=== PATIENT | female | born 1950 | race Caucasian/White ===

== ENCOUNTER → 2016-06-23 | Outpatient (CLI) | payer OTHER | END | disposition home or self-care (01) | LOC: C.LAB 07:30 | PROVIDERS: ATTEND Family Medicine | DX: Z11.59 Encounter for screening for other viral diseases (principal) ==

== ENCOUNTER → 2016-08-05 | Outpatient (CLI) | payer OTHER | END | disposition home or self-care (01) | LOC: C.PATH 17:07 | PROVIDERS: ATTEND Dermatology | DX: C44.619 Basal cell carcinoma of skin of left upper limb, including shoulder (principal); C44.719 Basal cell carcinoma of skin of left lower limb, including hip ==

== ENCOUNTER → 2016-12-07 | Outpatient (CLI) | payer OTHER ==
--- NOTE | 2016-12-08 08:10 | MAMMOGRAPHY REPORT ---
BILATERAL DIGITAL SCREENING MAMMOGRAM TOMOSYNTHESIS WITH CAD: 12/07/2016 CLINICAL HISTORY: Routine screening. Patient has no complaints. TECHNIQUE: Breast tomosynthesis in addition to standard 2D mammography was performed. Current study was also evaluated with a Computer Aided Detection (CAD) system. COMPARISON: Comparison is made to exams dated: 11/28/2014 mammogram, 12/03/2015 mammogram, 11/22/2013 ma mmogram, 11/21/2012 mammogram, 11/12/2010 mammogram, and 11/06/2009 mammogram - [facility]. BREAST COMPOSITION: There are scattered areas of fibroglandular density in both breasts. FINDINGS: There is a 6 mm focal asymmetry in the upper inner quadrant of the right breast. The size appears unchanged dating back to at least 11/06/2009 and there is increasing coarse calcification, m ost likely representing a degenerating fibroadenoma. No new suspicious mass, architectural distortion or cluster of microcalcifications is seen. IMPRESSION: ACR BI-RADS CATEGORY 2: BENIGN There is no mammographic evidence of malignancy. A 1 year screening mammogram is recommended. The pa tient will receive written notification of the results. Approximately 10% of breast cancers are not detected with mammography. A negative mammographic report should not delay biopsy if a clinically suggestive mass is present. America Landry M.D. ay/:12/07/2016 16:30:00 [employer]: Fela Canales M, [facility] letter sent: Normal 1/2 BI-RADS Code: ACR BI-RADS Category 2: Benign
== END | disposition home or self-care (01) ==
LOC: C.MAMM 07:38
PROVIDERS: ATTEND Family Medicine
DX: Z12.31 Encounter for screening mammogram for malignant neoplasm of breast (principal)

== ENCOUNTER → 2017-03-08 | Outpatient (CLI) | payer OTHER | END | disposition home or self-care (01) | LOC: C.PATHSPEC 17:31 | PROVIDERS: ATTEND Dermatology | DX: C44.91 Basal cell carcinoma of skin, unspecified (principal) ==

== ENCOUNTER 2017-05-16 22:06 | Inpatient (IN) | payer OTHER ==
[~2017-05-16] VITALS: Ht 162.6 cm; Wt 96.8 kg
[2017-05-16] MEDS ORDERED: [UNRECOGNIZED DRUG - OTHER] PO (23:04)
[2017-05-16] MEDS ORDERED: MONT1TAB3 PO (23:05)
[2017-05-16] MEDS ORDERED: COEN30CA8 PO (23:05)
[2017-05-16] MEDS ORDERED: FEXO1TAB49 PO (23:06)
[2017-05-16] MEDS ORDERED: PROB1TAB16 PO (23:07)
[2017-05-16] MEDS ORDERED: IBUP-1050 PO (23:08)
[2017-05-16] MEDS ORDERED: TRIA1SPR4 NAE (23:09)
[2017-05-16] MEDS ORDERED: MELA1TAB5 PO (23:10)
[2017-05-16] MEDS ORDERED: ONDANSETRON INJ 2 MG/ML 2 ML VIAL IV STA (23:20)
[2017-05-16] MEDS ORDERED: HYDROmorphone INJ 2 MG/ML SYR/VIAL IV STA (23:20)
[2017-05-16 23:33] LABS: BASO % 0.1 %; BASO ABS # 0.02 K/uL (0-0.2); EOS % 0.4 %; EOS ABS # 0.06 K/uL (0-0.5); HEMOGLOBIN 14.5 g/dL (12.0-16.0); IG# 0.03 K/uL (0.00-0.02); LYMPH % 9.4 %; LYMPH ABS # 1.31 K/uL (1.2-3.4); MEAN CELL VOLUME 77.3 fL (80-100); MEAN CORPUSCULAR HEMOGLOBIN 26.7 pg (25-34); MEAN CORPUSCULAR HGB CONC 34.5 g/dl (32-36); MEAN PLATELET VOLUME 9.7 fL (7.4-10.4); MONO % 6.3 %; MONO ABS # 0.88 K/uL (0.11-0.59); NEUT % 83.6 %; PLATELET COUNT 344 K/uL (130-400); RED CELL DISTRIBUTION WIDTH CV 16.9 % (11.5-14.5); RED CELL DISTRIBUTION WIDTH SD 47.3 fL (36.4-46.3)
--- NOTE | 2017-05-16 23:42 | EMERGENCY ROOM VISIT NOTE ---
History Report prepared by Saumya: Bonifacio Pedraza Under the Supervision of: Dr. Neena Heredia D.O. First contact with patient: 23:06 Chief Complaint: GI ASSESSMENT Stated Complaint: UPPER RIGHT QUAD PAIN,GI SOUNDS Nursing Triage Summary: Left abd and flank pain. History of Present Illness The patient is a 67 year old female who presents to the Emergency Room with complaints of worsening abdominal pain for the past three days. She currently rates her pain as a 7/10 in severity. The patient notes that the pain is diffuse , and it is radiating into the back. She notes that she ate a spinach salad three days ago, and afterwards she started to have this abdominal pain. The patient states that she was trying to sleep tonight, but the pain got worse, and she came to the ED for evaluation. She denies any history of abdominal surgeries, and she does not have any family history of gall bladder disease. The patient denies any vomiting, diarrhea, leg cramping, and leg swelling. The patient states that she has a history AV node conduction irregularity. She takes Vanna, Flonase, Singulair, 3 ibuprofen, and 6mg of melatonin every day. She ate half of a banana, a rice cake, yogurt, and a probiotic today. She denies any alcohol use. Source of History: patient Onset: three days ago Position: abdomen Symptom Intensity: 7/10 Timing: worsening Associated Symptoms: + back pain, No vomiting, No diarrhea Review of Systems See HPI for pertinent positives & negatives. A total of 10 systems reviewed and were otherwise negative. Past Medical & Surgical Medical Problems: (1) Heart disease (2) History of skin cancer (3) HTN (hypertension) Family History Cancer Diabetes mellitus Heart disease Hypertension Social History Smoking Status: Former Smoker Marital Status: Housing Status: lives with family Occupation Status: employed Current/Historical Medications Scheduled Coenzyme Q10 (Ubidecarenone) (Coq-10), Unknown Dose PO DAILY Fexofenadine Hcl (Vanna Allergy), 1 TAB PO DAILY Ibuprofen (Advil), 300 MG PO HS Melatonin (Kp Melatonin), 6 MG PO HS Montelukast Sodium (Singulair), 10 MG PO DAILY Probiotic Product (Probiotic), 1 TAB PO DAILY Triamcinolone Acetonide (Nasal (Nasacort Allergy 24Hr), 1 SPRAY SAM DAILY [red ankita oil], 1 DOSE PO DAILY Allergies Coded Allergies: Dust (Verified Allergy, Unknown, runny nose, 05/16/17) Physical Exam Vital Signs Date Time Temp Pulse Resp B/P (MAP) Pulse Ox O2 Delivery O2 Flow Rate FiO2 05/17/17 05:21 96 Nasal Cannula 2.0 05/17/17 05:21 86 Room Air 05/17/17 05:14 70 20 90/60 94 Room Air 05/17/17 03:43 81 20 126/67 93 Room Air 05/17/17 02:28 74 05/17/17 02:21 76 20 112/67 100 Nasal Cannula 2.0 05/17/17 00:46 74 16 110/68 95 Nasal Cannula 2.0 05/17/17 00:18 95 Nasal Cannula 2.0 05/17/17 00:16 66 15 110/68 80 Room Air 05/16/17 22:48 85 05/16/17 22:12 36.7 89 24 131/77 99 Room Air Physical Exam General: Appears unable to sit still secondary to pain. HEENT: Head - normocephalic and atraumatic Pupils are equal, round, and reactive to light. Extraocular eye muscles are intact, and sclera are anicteric. Nose - moist nasal mucosa without discharge. Mouth - moist buccal mucosa. Oropharynx is nonerythematous and there is no tonsillar exudate or edema noted. Neck: Supple; no JVD, nuchal rigidity, cervical lymphadenopathy. Heart: Regular rate and rhythm. There is a normal S1 and S2 with no murmurs, clicks, or gallops appreciated. Lungs: Clear to auscultation bilaterally with no wheezes, rales, or rhonchi. Abdomen: Pain with palpation of the epigastrium and right upper quadrant. Soft, nondistended, with good bowel sounds. There are no palpable pulsatile masses or hepatosplenomegaly. There is no guarding, rigidity, or rebound noted. Extremities: No evidence of cyanosis, clubbing, or edema. There are easily palpable peripheral pulses. Skin: warm and dry with good turgor and no rashes. Medical Decision & Procedures ER Provider Diagnostic Interpretation: Radiology results as stated below per my review and the radiologist's interpretation: US RUQ: Prior 08/06/2005. Normal gallbladder. Negative sonographic Mendoza sign. No biliary dilation. Bilobed cystic liver lesion or 2 adjacent septated liver cysts measuring approximately 5 and 6 cm. May be cysts. New since the prior. Consider follow-up/further workup. 2.7 cm hypoechoic lesion in the right hepatic lobe distorts the anterior liver contour. Not adequately characterized and not seen on the prior. Consider follow-up/further workup with liver protocol, multiphasic CT or MRI to characterize lesion. Pancreas partially visualized. No obvious abnormality in the visualized portion CT ABDOMEN & PELVIS With Contrast: The pancreas is enlarged and edematous with peripancreatic fat stranding, consistent with acute pancreatitis. There are no cystic or necrotic peripancreatic collections. No evidence of pancreatic ductal dilatation or pancreatic parenchymal necrosis. There are multiple hepatic cysts, the largest in the left hepatic lobe with a pair of adjacent cysts measuring 4.7 cm and 6.3 cm. There is mild gallbladder distention. Common bile duct appears normal in caliber. Spleen, adrenal glands, and pancreas are unremarkable. No evidence of bowel obstruction. Visualized appendix is normal. Reactive inflammatory changes in the duodenum. Urinary bladder and uterus are unremarkable. No acute osseous findings. Radiologist: Patricia Silverman M.D. Laboratory Results 05/16/17 22:45 Red Blood Count 5.43, Mean Corpuscular Volume 77.3, Mean Corpuscular Hemoglobin 26.7, Mean Corpuscular Hemoglobin Concent 34.5, Mean Platelet Volume 9.7, Neutrophils (%) (Auto) 83.6, Lymphocytes (%) (Auto) 9.4, Monocytes (%) (Auto) 6.3, Eosinophils (%) (Auto) 0.4, Basophils (%) (Auto) 0.1, Neutrophils # (Auto) 11.70, Lymphocytes # (Auto) 1.31, Monocytes # (Auto) 0.88, Eosinophils # (Auto) 0.06, Basophils # (Auto) 0.02 05/16/17 22:45 Test 05/16/17 22:45 White Blood Count 14.00 K/uL (4.8-10.8) Red Blood Count 5.43 M/uL (4.2-5.4) Hemoglobin 14.5 g/dL (12.0-16.0) Hematocrit 42.0 % (37-47) Mean Corpuscular Volume 77.3 fL (80-100) Mean Corpuscular Hemoglobin 26.7 pg (25-34) Mean Corpuscular Hemoglobin Concent 34.5 g/dl (32-36) Platelet Count 344 K/uL (130-400) Mean Platelet Volume 9.7 fL (7.4-10.4) Neutrophils (%) (Auto) 83.6 % Lymphocytes (%) (Auto) 9.4 % Monocytes (%) (Auto) 6.3 % Eosinophils (%) (Auto) 0.4 % Basophils (%) (Auto) 0.1 % Neutrophils # (Auto) 11.70 K/uL (1.4-6.5) Lymphocytes # (Auto) 1.31 K/uL (1.2-3.4) Monocytes # (Auto) 0.88 K/uL (0.11-0.59) Eosinophils # (Auto) 0.06 K/uL (0-0.5) Basophils # (Auto) 0.02 K/uL (0-0.2) RDW Standard Deviation 47.3 fL (36.4-46.3) RDW Coefficient of Variation 16.9 % (11.5-14.5) Immature Granulocyte % (Auto) 0.2 % Immature Granulocyte # (Auto) 0.03 K/uL (0.00-0.02) Urine Color YELLOW Urine Appearance CLEAR (CLEAR) Urine pH 8.0 (4.5-7.5) Urine Specific [place] 1.022 (1.000-1.030) Urine Protein NEG (NEG) Urine Glucose (UA) NEG (NEG) Urine Ketones 1+ (NEG) Urine Occult Blood NEG (NEG) Urine Nitrite NEG (NEG) Urine Bilirubin NEG (NEG) Urine Urobilinogen NEG (NEG) Urine Leukocyte Esterase NEG (NEG) Anion Gap 10.0 mmol/L (3-11) Est Creatinine Clear Calc Drug Dose 71.0 ml/min Estimated GFR () 83.3 Estimated GFR (Non- 71.9 BUN/Creatinine Ratio 11.6 (10-20) Calcium Level 8.7 mg/dl (8.5-10.1) Total Bilirubin 0.4 mg/dl (0.2-1) Direct Bilirubin < 0.1 mg/dl (0-0.2) Aspartate Amino Transf (AST/SGOT) 14 U/L (15-37) Alanine Aminotransferase (ALT/SGPT) 18 U/L (12-78) Alkaline Phosphatase 80 U/L (45-117) Troponin I < 0.015 ng/ml (0-0.045) Total Protein 7.7 gm/dl (6.4-8.2) Albumin 3.6 gm/dl (3.4-5.0) Lipase 751 U/L (73-393) Laboratory results per my review. Medications Administered Medications (Trade) Dose Ordered Sig/Joselyn Route Start Time Stop Time Status Last Admin Dose Admin Hydromorphone HCl (Dilaudid Inj) 2 mg NOW STAT IV 05/16/17 23:20 05/16/17 23:21 DC 05/16/17 23:30 2 MG Ondansetron HCl (Zofran Inj) 4 mg NOW STAT IV 05/16/17 23:20 05/16/17 23:21 DC 05/16/17 23:30 4 MG Ondansetron HCl (Zofran Inj) 4 mg NOW STAT IV 05/17/17 00:36 05/17/17 00:37 DC 05/17/17 00:50 4 MG Sodium Chloride 500 ml @ 999 mls/hr Q31M STAT IV 05/17/17 00:36 05/17/17 01:06 DC 05/17/17 00:50 999 MLS/HR Hydromorphone HCl (Dilaudid Inj) 1 mg NOW STAT IV 05/17/17 04:43 05/17/17 04:44 DC 05/17/17 04:53 1 MG Sodium Chloride 1,000 ml @ 125 mls/hr Q8H STAT IV 05/17/17 04:44 05/17/17 12:43 05/17/17 04:52 125 MLS/HR Ondansetron HCl (Zofran Inj) 2 mg NOW STAT IV 05/17/17 04:45 05/17/17 04:46 DC 05/17/17 04:52 2 MG Procedure Ordered: Zofran IV 3, Dilaudid IV 2, Sodium Chloride IV bolus, normal saline drip ECG Per My Interpretation Indication: abdominal pain Rate (beats per minute): 70 Rhythm: normal sinus Findings: LBBB, no acute ischemic change, no ectopy Comparison ECG Date: no prior available ED Course 2314: Past medical records reviewed. The patient was evaluated in room C1. A complete history and physical exam was performed. An IV lock was initiated and labs were drawn as above. 2320: Zofran 4mg IV, Dilaudid 2mg IV 0019: I reevaluated the patient, and I told her that she is going over to ultrasound. 0035: The patient was vomiting. A 12-lead EKG was obtained as described above 0036: Sodium Chloride 500 ml @ 999 mls/hr IV, Zofran 4mg IV 0235: I reevaluated the patient, and she was resting. I reviewed the results of the ultrasound with the patient and her . The patient will go for CT scan of the abdomen/pelvis. 0443: I reassessed the patient, and she was having more pain. I ordered Dilaudid 1mg IV 0444: Sodium Chloride 1000 ml @ 125 mls/hr IV. 0445: Discussed the patient's case with Dr. Damion Markham. The patient will be evaluated for further management. I ordered Zofran 2mg IV 0447: The patient notes that she has a history of a left bundle branch block. Medical Decision The patient is a 67 year old female who presents to the ED with abdominal pain. Differential diagnosis includes Cholecystitis, pancreatitis, ulcerative disease , gastritis, and small bowel obstruction. Lab results: UA had 1+ ketones, lipase is 751, glucose 118, LFT and renal function are normal, white count is 15, stable H&H This is a 67-year-old female patient presents to the emergency department with severe epigastric abdominal pain. The patient has an elevated lipase but no obvious signs of acute cholecystitis on ultrasound. CT scan of the abdomen/ pelvis shows evidence of acute pancreatitis. She has no history of alcohol abuse. The patient will be kept n.p.o. She was placed on normal saline drip. She required decisional doses of IV Dilaudid for pain management. I discussed the case with Lia Markham and they will evaluate for further management. Medication Reconcilliation Current Medication List: was personally reviewed by me Blood Pressure Screening Patient's blood pressure: Normal blood pressure Consults Time Called: [phone] Consulting Physician: Dr. Damion Markham Returned Call: [phone] Discussed the patient's case with Dr. Damion Markham. The patient will be evaluated for further management. Impression Primary Impression: Pancreatitis Scribe Attestation The scribe's documentation has been prepared under my direction and personally reviewed by me in its entirety. I confirm that the note above accurately reflects all work, treatment, procedures, and medical decision making performed by me. Departure Information Dispostion Being Evaluated By Hospitalist Referrals Nicole Blackwell D.O. (PCP) Patient Instructions My [facility] Problem Qualifiers Primary Impression: Pancreatitis Chronicity: acute Pancreatitis type: unspecified pancreatitis type Acute pancreatitis complication: unspecified Qualified Codes: K85.90 - Acute pancreatitis without necrosis or infection, unspecified
[2017-05-16 23:56] LABS: ALBUMIN 3.6 gm/dl (3.4-5.0); ALT/SGPT 18 U/L (12-78); AST/SGOT 14 U/L (15-37); BLOOD UREA NITROGEN 10 mg/dl (7-18); CALCIUM 8.7 mg/dl (8.5-10.1); CARBON DIOXIDE 25 mmol/L (21-32); CREATININE 0.85 mg/dl (0.60-1.20); GLUCOSE 118 mg/dl (70-99); LIPASE 751 U/L (73-393); POTASSIUM 3.6 mmol/L (3.5-5.1); SODIUM 136 mmol/L (136-145)
[2017-05-17 00:01] LABS: ALKALINE PHOSPHATASE 80 U/L (45-117); TOTAL PROTEIN 7.7 gm/dl (6.4-8.2)
[2017-05-17] MEDS ORDERED: SODIUM CHLORIDE 0.9% 500ML 500 ML IV STA (00:36)
[2017-05-17] MEDS ORDERED: ONDANSETRON INJ 2 MG/ML 2 ML VIAL IV STA ×2 (00:36→04:45)
[2017-05-17] MEDS ORDERED: OPTIRAY 320 IV PRN (03:30)
[2017-05-17] MEDS ORDERED: HYDROmorphone INJ 1 MG/ML SYR IV STA (04:43)
[2017-05-17] MEDS ORDERED: SODIUM CHLORIDE 0.9% 1000ML 1,000 ML IV STA (04:44)
[2017-05-17] MEDS ORDERED: ONDANSETRON INJ 2 MG/ML 2 ML VIAL ONE (04:47)
[2017-05-17] MEDS ORDERED: POLYETHYLENE (MIRALAX) 17 GM PACK PO PRN (06:30)
[2017-05-17] MEDS ORDERED: ONDANSETRON INJ 2 MG/ML 2 ML VIAL IV PRN (06:30)
--- NOTE | 2017-05-17 06:35 | History and Physical ---
History & Physical Date & Time of Service: May 17, 2017 at 06:34 Chief Complaint: Upper Right Quad Pain,Gi Sounds Primary Care Physician: Nicole Blackwell D.O. History of Present Illness Source: patient, family, clinic records Patient is a 67 yo female who presents to the hospital for complaints of intensifying abdominal pain that first began about 3 days ago. The patient states she noted RUQ constant pain on Tuesday, with radiation to the left side. She states that she has had normal BMs, and attributed the symptoms to possibly something she ate as she said certain foods have been eliminated from her diet due to intolerance (i.e. dairy, whole wheat, certain grains). The pain seemed to get worse each day, until earlier today it became unbearable and starting radiating straight into her back. She denies any recent medication changes, denies any alcohol use, and denies any symptoms of melena, hematochezia , nausea, or vomiting, but only experienced N/V since been in the ER. No prior history of such symptoms. She has never undergone a screening colonoscopy due to a traumatic experience with a sigmoidoscopy. Past Medical/Surgical History Medical Problems: (1) RBBB (2) History of skin cancer (3) Allergic rhinitis Family History Cancer Diabetes mellitus Heart disease Hypertension Social History Smoking Status: Former Smoker Alcohol Use: occasionally (rarely) Drug Use: none Marital Status: Housing status: lives with family Occupational Status: employed (RN at [employer]) Multi-Drug Resistant Organisms History of MDRO: No Allergies Coded Allergies: Dust (Verified Allergy, Unknown, runny nose, 05/16/17) Home Medications Scheduled Coenzyme Q10 (Ubidecarenone) (Coq-10), Unknown Dose PO DAILY Fexofenadine Hcl (Minesh Allergy), 1 TAB PO DAILY Ibuprofen (Advil), 300 MG PO HS Melatonin (Kp Melatonin), 6 MG PO HS Montelukast Sodium (Singulair), 10 MG PO DAILY Probiotic Product (Probiotic), 1 TAB PO DAILY Triamcinolone Acetonide (Nasal (Nasacort Allergy 24Hr), 1 SPRAY SAM DAILY [red ankita oil], 1 DOSE PO DAILY Review of Systems Constitutional: No fever, No chills, No sweats Eyes: No worsening of vision, No eye pain, No diplopia ENT: No nasal symptoms, No sore throat, No trouble swallowing Respiratory: No cough, No wheezing, No shortness of breath Cardiovascular: No chest pain, No edema, No palpitations Abdomen: + pain, No nausea, No vomiting, No diarrhea, No constipation, No GI bleeding Musculoskeletal: No joint pain, No muscle pain, No swelling Genitourinary - Female: No dysuria, No urinary frequency, No urinary urgency, No urinary incontinence Neurologic: No memory loss, No paralysis, No numbness/tingling, No vertigo Psychiatric: No depression symptoms, No anxiety, No insomnia Endocrine: No fatigue, No excessive thirst, No excessive urination Hematologic / Lymphatic: No abnormal bleeding/bruising, No clotting problems, No swollen lymph nodes Integumentary: No rash, No itch, No new/changing skin lesions Physical Exam Vital Signs Date Time Temp Pulse Resp B/P (MAP) Pulse Ox O2 Delivery O2 Flow Rate FiO2 05/17/17 06:04 66 18 123/51 96 Nasal Cannula 2.0 05/17/17 05:21 96 Nasal Cannula 2.0 05/17/17 05:21 86 Room Air 05/17/17 05:14 70 20 90/60 94 Room Air 05/17/17 03:43 81 20 126/67 93 Room Air 05/17/17 02:28 74 05/17/17 02:21 76 20 112/67 100 Nasal Cannula 2.0 05/17/17 00:46 74 16 110/68 95 Nasal Cannula 2.0 05/17/17 00:18 95 Nasal Cannula 2.0 05/17/17 00:16 66 15 110/68 80 Room Air 05/16/17 22:48 85 05/16/17 22:12 36.7 89 24 131/77 99 Room Air General Appearance: WD/WN, no apparent distress Head: normocephalic, atraumatic Eyes: PERRL, EOMI, sclerae normal (conjunctivae clear) ENT: hearing grossly normal Neck: supple, no JVD, no carotid bruits, trachea midline Respiratory/Chest: chest non-tender, lungs clear, normal breath sounds, no respiratory distress, no accessory muscle use Cardiovascular: regular rate, rhythm, no edema, no gallop, no JVD, no murmur Abdomen/GI: normal bowel sounds, soft, no organomegaly, + tenderness, + distended Back: normal inspection Extremities/Musculoskelatal: no calf tenderness, normal capillary refill, no pedal edema, non-tender Neurologic/Psych: no motor/sensory deficits, alert, normal mood/affect, oriented x 3 Skin: normal color, warm/dry, no rash Diagnostics Laboratory Results Results Past 24 Hours Test 05/16/17 22:45 05/17/17 06:30 05/17/17 06:33 Range/Units White Blood Count 14.00 4.8-10.8 K/uL Red Blood Count 5.43 4.2-5.4 M/uL Hemoglobin 14.5 12.0-16.0 g/dL Hematocrit 42.0 37-47 % Mean Corpuscular Volume 77.3 80-100 fL Mean Corpuscular Hemoglobin 26.7 25-34 pg Mean Corpuscular Hemoglobin Concent 34.5 32-36 g/dl Platelet Count 344 130-400 K/uL Mean Platelet Volume 9.7 7.4-10.4 fL Neutrophils (%) (Auto) 83.6 % Lymphocytes (%) (Auto) 9.4 % Monocytes (%) (Auto) 6.3 % Eosinophils (%) (Auto) 0.4 % Basophils (%) (Auto) 0.1 % Neutrophils # (Auto) 11.70 1.4-6.5 K/uL Lymphocytes # (Auto) 1.31 1.2-3.4 K/uL Monocytes # (Auto) 0.88 0.11-0.59 K/uL Eosinophils # (Auto) 0.06 0-0.5 K/uL Basophils # (Auto) 0.02 0-0.2 K/uL RDW Standard Deviation 47.3 36.4-46.3 fL RDW Coefficient of Variation 16.9 11.5-14.5 % Immature Granulocyte % (Auto) 0.2 % Immature Granulocyte # (Auto) 0.03 0.00-0.02 K/uL Urine Color YELLOW Urine Appearance CLEAR CLEAR Urine pH 8.0 4.5-7.5 Urine Specific [place] 1.022 1.000-1.030 Urine Protein NEG NEG Urine Glucose (UA) NEG NEG Urine Ketones 1+ NEG Urine Occult Blood NEG NEG Urine Nitrite NEG NEG Urine Bilirubin NEG NEG Urine Urobilinogen NEG NEG Urine Leukocyte Esterase NEG NEG Sodium Level 136 136-145 mmol/L Potassium Level 3.6 3.5-5.1 mmol/L Chloride Level 101 98-107 mmol/L Carbon Dioxide Level 25 21-32 mmol/L Anion Gap 10.0 3-11 mmol/L Blood Urea Nitrogen 10 7-18 mg/dl Creatinine 0.85 0.60-1.20 mg/dl Est Creatinine Clear Calc Drug Dose 71.0 ml/min Estimated GFR () 83.3 Estimated GFR (Non- 71.9 BUN/Creatinine Ratio 11.6 10-20 Random Glucose 118 70-99 mg/dl Calcium Level 8.7 8.5-10.1 mg/dl Total Bilirubin 0.4 0.2-1 mg/dl Direct Bilirubin < 0.1 0-0.2 mg/dl Aspartate Amino Transf (AST/SGOT) 14 15-37 U/L Alanine Aminotransferase (ALT/SGPT) 18 12-78 U/L Alkaline Phosphatase 80 45-117 U/L Troponin I < 0.015 0-0.045 ng/ml Total Protein 7.7 6.4-8.2 gm/dl Albumin 3.6 3.4-5.0 gm/dl Lipase 751 73-393 U/L Impression Assessment and Plan ACUTE PANCREATITIS: -US gallbladder negative for cholelithiasis or biliary ductal dilatation -CT abd/pelvis: subtle peripancreatic fat stranding, no cyst, abscess or necrosis -NPO -pain control PRN -IV fluids -check lipid panel for triglycerides -GI consult ALLERGIC RHINITIS: -continue minesh, singulair, and nasal steroid Level of Care Telemetry Resuscitation Status FULL RESUSCITATION VTE Prophylaxis VTE Risk Assessment Done? Y/N: Yes Risk Level: Moderate Given or contraindicated: SCD's
--- NOTE | 2017-05-17 06:40 | DIAGNOSTIC IMAGING REPORT ---
CT ABD/PELVIS IV CONTRAST ONLY CLINICAL HISTORY: Right upper quadrant abdominal pain ABNORMAL ULTRASOUND. HEPATIC MASS. COMPARISON STUDY: Biliary ultrasound dated 05/17/2017 TECHNIQUE: Following the IV administration of 118 mL of Optiray-320, CT scan of the abdomen and pelvis was performed from the lung bases to the proximal femurs. Images are reviewed in the axial, sagittal, and coronal planes. IV contrast was administered without complication. A dose lowering technique was utilized adhering to the principles of ALARA. CT DOSE: 1045.04 mGy.cm FINDINGS: Lower chest: There are dependent atelectatic changes present. Liver: There are multiple hepatic cysts, the largest of which are located in the lateral segment the left lobe measuring 6.7 cm and 5.1 cm. The cyst contains small septations. There is no ductal dilatation. The portal vein is patent. Gallbladder: Unremarkable. Spleen: Normal in size and attenuation. Pancreas: There is subtle peripancreatic edema. Correlation with appropriate biochemical markers is recommended to confirm or exclude pancreatitis Adrenal glands: Unremarkable. Kidneys: There is symmetric renal cortical enhancement. The kidneys are normal in size without hydronephrosis. Bowel: There are no transition zones indicate bowel obstruction. The appendix appears normal. There is no acute diverticulitis. Peritoneum: There is no intraperitoneal free air or abdominal ascites. Vasculature: The abdominal aorta is normal in course and caliber. Adenopathy: None. Pelvic viscera: The bladder, and pelvic viscera are unremarkable. Skeletal structures: No destructive osseous lesions are seen. IMPRESSION: 1. No evidence of bowel obstruction. No evidence of free air 2. Mild pancreatic edema with subtle peripancreatic fat stranding. The findings are viewed as suspicious for acute pancreatitis and clinical correlation is advocated 3. Multiple hepatic cysts Electronically signed by: Matthew Madera M.D. 05/17/2017 6:39 AM Dictated Date/Time: 05/17/2017 6:35 AM
[2017-05-17] MEDS ORDERED: MoRPHine SULFATE 4 MG/ML 1 ML CARP\\VIAL IV PRN ×2 (06:45→17:00)
[2017-05-17] MEDS ORDERED: SODIUM CHLORIDE 0.9% 1000ML 1,000 ML IV SCH (06:45)
--- NOTE | 2017-05-17 07:17 | DIAGNOSTIC IMAGING REPORT ---
GALLBLADDER-ABD LIMITED CLINICAL HISTORY: 67 years-old Female presenting with eval for choley/pancreatitis, left upper quadrant pain, nausea. TECHNIQUE: Real-time grayscale and limited color Doppler ultrasound imaging of the abdomen limited to the right upper quadrant was performed. COMPARISON: CT performed subsequently the same day as well as prior ultrasound from 07/27/2005. FINDINGS: Pancreas: Visualized portions of the pancreatic head and body normal though trace peripancreatic fluid may be present along the ventral aspect of the pancreas. Liver: The liver contains multiple well-defined lobular lesions consistent with hepatic cysts. Some of these demonstrate few thin septations. Additionally a hypoechoic region in the anterior right hepatic lobe slightly distorts the overlying contour with a convex margin. This appears avascular and measures 2.7 x 1.7 x 2.2 cm. When correlating with subsequently performed CT, this is again consistent with hepatic cyst. The liver measures 12.9 cm in maximal sagittal dimension. Main portal vein patent with normal directional flow. Biliary: No intrahepatic biliary ductal dilatation. Common bile duct measures up to 5 mm in diameter. Gallbladder: No evidence of gallstones, gallbladder wall thickening, gallbladder distention, or pericholecystic fluid or inflammatory change. Sonographic Mendoza's sign negative. Right kidney: Normal in appearance. No hydronephrosis. Ascites: None. IMPRESSION: 1. No cholelithiasis or biliary ductal dilatation. No evidence of or cholecystitis. 2. Trace peripancreatic fluid within sonographically normal-appearing pancreas. This could suggest interstitial edematous pancreatitis. Please correlate with lipase. 3. Multiple hepatic cysts. These are better characterized on subsequently performed CT. Electronically signed by: Rashaad Garza M.D. 05/17/2017 7:16 AM Dictated Date/Time: 05/17/2017 6:56 AM
[2017-05-17 07:24] LABS: HEMATOCRIT 37.4 % (37-47); HEMOGLOBIN 12.4 g/dL (12.0-16.0); MEAN CELL VOLUME 79.1 fL (80-100); MEAN CORPUSCULAR HEMOGLOBIN 26.2 pg (25-34); MEAN CORPUSCULAR HGB CONC 33.2 g/dl (32-36); MEAN PLATELET VOLUME 9.5 fL (7.4-10.4); PLATELET COUNT 294 K/uL (130-400); RED CELL DISTRIBUTION WIDTH CV 16.7 % (11.5-14.5); RED CELL DISTRIBUTION WIDTH SD 48.4 fL (36.4-46.3); WHITE BLOOD COUNT 14.93 K/uL (4.8-10.8)
[2017-05-17 07:47] LABS: ALBUMIN 2.9 gm/dl (3.4-5.0); CALCIUM 7.7 mg/dl (8.5-10.1); CREATININE 0.69 mg/dl (0.60-1.20); POTASSIUM 4.5 mmol/L (3.5-5.1)
[2017-05-17 07:53] LABS: TOTAL PROTEIN 6.4 gm/dl (6.4-8.2)
[2017-05-17] MEDS ORDERED: MONTELUKAST SOD 10 MG TAB PO SCH (08:00)
[2017-05-17] MEDS ORDERED: TRIAMCINOLONE ACET NASAL SPRAY 10.8ML BTL NAE SCH (08:00)
[2017-05-17] MEDS ORDERED: FEXOFENADINE HCL 180 MG TAB PO SCH (08:00)
[2017-05-17 08:40] LABS: INR 1.1 (0.9-1.1); PTT PATIENT 30.1 SECONDS (21.0-31.0)
[2017-05-17] MEDS: ENOXAPARIN 40 MG/0.4 ML SYR SQ SCH (09:30)
[2017-05-17 09:33] VITALS: BP 114/75; PULSE 71; TEMP 36.4; Ht 162.6 cm; Wt 96.8 kg
[2017-05-17] MEDS ORDERED: NURSING DECISION MEDICATION ORDER SCH (10:00)
--- NOTE | 2017-05-17 12:10 | Gastrointestinal Consultation ---
Gastrointestinal Consultation Date of Consultation: May 17, 2017 Attending Physician: Miky Consulting Physician: Suzanne Reason for Consultation: acute pancreatitis History of Present Illness Patient is a 67 year old female w/ history of RBBB who presented to the ED for abdominal pain x 3 days. Gi was asked to evaluate the Pt for CT evidence of acute pancreatitis. Pt was seen and evaluated, chart reviewed. Pt notes she had acute onset upper abdominal pain about three days ago. This was located in RUQ with radiation to her back. there was associated nausea, no vomiting. this was worse after certain foods. The next day, she noted the pain was more epigastric in location w/ radiaiton to her back/ It was more severe and persisted and sought ED evaluation. There was no change in her bowel habits. No diarrhea, constipation, black/bloody stools. She tried to take a probiotic, did not relieve her symptoms. She had one bout of emesis after pain medication, this was not black nor bloody. She had chills this AM. Now, no fever, chills. VSS, leukocytosis at 15, HGB 12, HCT 37 w/ plates 300's. BUN 9, cork slabs sawyer 0.6 Her liver enzymes are non elevated w/ lipase 800 New medications: none ETOH: rare, less than once a year none recently Supplements: none NSAIDs: 800 daily HS History of GI malignancy: maternal grandfather w/ colon CA CT ABD/Pelvis 05/17/17: No evidence of bowel obstruction. No evidence of free air Mild pancreatic edema with subtle peripancreatic fat stranding. The findings are viewed as suspicious for acute pancreatitis and clinical correlation isadvocatedMultiple hepatic cysts RUQ US 05/17/17: No cholelithiasis or biliary ductal dilatation. No evidence of orcholecystitis. Trace peripancreatic fluid within sonographically normal- appearing pancreas.This could suggest interstitial edematous pancreatitis. Please correlate withlipase. Multiple hepatic cysts. These are better characterized on subsequently performed CT. EGD: none Colonoscopy: none, pt currently not interested in screening, suggested to call to arrange if she were to change her mind Flex sigmoidoscopy: years ago in OP setting, no records available Past Medical/Surgical History Medical Problems: (1) Pancreatitis Status: Acute Past Medical History: RBBB History of skin cancer Allergic rhinitis Past Surgical History: flex sig Family History Cancer Diabetes mellitus Heart disease Hypertension Social History Smoking Status: Never Smoker Drug Use: none Marital Status: Housing Status: lives with family Occupation Status: employed (RN at [employer]) Allergies Coded Allergies: Dust (Verified Allergy, Unknown, runny nose, 05/16/17) Current Medications Home Meds and Scripts Medications Dose Route/Sig Max Daily Dose Days Date Category Kp Melatonin (Melatonin) 3 Mg Tab 6 Mg PO HS 30 05/16/17 Reported Nasacort Allergy 24Hr (Triamcinolone Acetonide (Nasal) 55 Mcg/Act Spr 1 [place] SAM DAILY 05/16/17 Reported Advil (Ibuprofen) 200 Mg Tab 300 Mg PO HS 05/16/17 Reported Probiotic (Probiotic Product) 1 Tab Tab 1 Tab PO DAILY 05/16/17 Reported Vanna Allergy (Fexofenadine Hcl) 180 Mg Tab 1 Tab PO DAILY 14 05/16/17 Reported Singulair (Montelukast Sodium) 10 Mg Tab 10 Mg PO DAILY 05/16/17 Reported Coq-10 (Coenzyme Q10 (Ubidecarenone)) Unknown Strength Cap Unknown Dose PO DAILY 05/16/17 Reported [red ankita oil] 1 Dose PO DAILY 05/16/17 Reported Review of Systems Constitutional: + chills, No fever, No weight loss, No weakness Respiratory: No cough, No sputum, No shortness of breath, No dyspnea on exertion Cardiac: No chest pain, No edema Abdomen: + pain, + nausea, + vomiting, No diarrhea, No constipation, No GI bleeding, No dysphagia, No odynophagia, No acolic stools, No jaundice, No dark urine Female : No dysuria, No urinary frequency, No hematuria, No incontinence Endo: No fatigue, No excessive thirst, No excessive urination Skin: No rash, No itch, No color change, No bleeding, No jaundice Physical Exam Date Time Temp Pulse Resp B/P (MAP) Pulse Ox O2 Delivery O2 Flow Rate FiO2 05/17/17 09:33 36.4 71 16 114/75 Room Air 05/17/17 07:24 70 17 128/89 98 05/17/17 06:04 66 18 123/51 96 Nasal Cannula 2.0 05/17/17 05:21 96 Nasal Cannula 2.0 05/17/17 05:21 86 Room Air 05/17/17 05:14 70 20 90/60 94 Room Air 05/17/17 03:43 81 20 126/67 93 Room Air 05/17/17 02:28 74 05/17/17 02:21 76 20 112/67 100 Nasal Cannula 2.0 05/17/17 00:46 74 16 110/68 95 Nasal Cannula 2.0 05/17/17 00:18 95 Nasal Cannula 2.0 05/17/17 00:16 66 15 110/68 80 Room Air 05/16/17 22:48 85 05/16/17 22:12 36.7 89 24 131/77 99 Room Air General Appearance: no apparent distress Eyes: PERRL Neck: supple, thyroid normal, no JVD, trachea midline Respiratory/Chest: chest non-tender, lungs clear, normal breath sounds, no respiratory distress, no accessory muscle use Cardiovascular: regular rate, rhythm, no edema, no gallop, no JVD, no murmur Abdomen: normal bowel sounds, soft, no organomegaly, no pulsatile mass, + tenderness (epigastric w/ palpation) Extremities: non-tender, no pedal edema, no calf tenderness Neurologic/Psych: alert, normal mood/affect, oriented x 3 Skin: normal color, no jaundice, warm/dry, no rash Laboratory Results Last 24 Hours Test 05/16/17 22:45 05/17/17 07:10 05/17/17 08:17 White Blood Count 14.00 K/uL 14.93 K/uL Red Blood Count 5.43 M/uL 4.73 M/uL Hemoglobin 14.5 g/dL 12.4 g/dL Hematocrit 42.0 % 37.4 % Mean Corpuscular Volume 77.3 fL 79.1 fL Mean Corpuscular Hemoglobin 26.7 pg 26.2 pg Mean Corpuscular Hemoglobin Concent 34.5 g/dl 33.2 g/dl Platelet Count 344 K/uL 294 K/uL Mean Platelet Volume 9.7 fL 9.5 fL Neutrophils (%) (Auto) 83.6 % Lymphocytes (%) (Auto) 9.4 % Monocytes (%) (Auto) 6.3 % Eosinophils (%) (Auto) 0.4 % Basophils (%) (Auto) 0.1 % Neutrophils # (Auto) 11.70 K/uL Lymphocytes # (Auto) 1.31 K/uL Monocytes # (Auto) 0.88 K/uL Eosinophils # (Auto) 0.06 K/uL Basophils # (Auto) 0.02 K/uL RDW Standard Deviation 47.3 fL 48.4 fL RDW Coefficient of Variation 16.9 % 16.7 % Immature Granulocyte % (Auto) 0.2 % Immature Granulocyte # (Auto) 0.03 K/uL Urine Color YELLOW Urine Appearance CLEAR Urine pH 8.0 Urine Specific [place] 1.022 Urine Protein NEG Urine Glucose (UA) NEG Urine Ketones 1+ Urine Occult Blood NEG Urine Nitrite NEG Urine Bilirubin NEG Urine Urobilinogen NEG Urine Leukocyte Esterase NEG Sodium Level 136 mmol/L 137 mmol/L Potassium Level 3.6 mmol/L 4.5 mmol/L Chloride Level 101 mmol/L 105 mmol/L Carbon Dioxide Level 25 mmol/L 26 mmol/L Anion Gap 10.0 mmol/L 5.0 mmol/L Blood Urea Nitrogen 10 mg/dl 9 mg/dl Creatinine 0.85 mg/dl 0.69 mg/dl Est Creatinine Clear Calc Drug Dose 71.0 ml/min 87.4 ml/min Estimated GFR () 83.3 105.9 Estimated GFR (Non- 71.9 91.4 BUN/Creatinine Ratio 11.6 12.8 Random Glucose 118 mg/dl 114 mg/dl Calcium Level 8.7 mg/dl 7.7 mg/dl Total Bilirubin 0.4 mg/dl 0.3 mg/dl Direct Bilirubin < 0.1 mg/dl Aspartate Amino Transf (AST/SGOT) 14 U/L 13 U/L Alanine Aminotransferase (ALT/SGPT) 18 U/L 16 U/L Alkaline Phosphatase 80 U/L 64 U/L Troponin I < 0.015 ng/ml Total Protein 7.7 gm/dl 6.4 gm/dl Albumin 3.6 gm/dl 2.9 gm/dl Lipase 751 U/L Globulin 3.5 gm/dl Albumin/Globulin Ratio 0.8 Triglycerides Level 53 mg/dl Cholesterol Level 152 mg/dl HDL Cholesterol 43 mg/dl LDL Cholesterol, Calculated 98 mg/dl VLDL Cholesterol, Calculated 11 mg/dl Cholesterol/HDL Ratio 3.5 Thyroid Stimulating Hormone (TSH) 1.090 uIu/ml Prothrombin Time 11.2 SECONDS Prothromb Time International Ratio 1.1 Activated Partial Thromboplast Time 30.1 SECONDS Partial Thromboplastin Ratio 1.2 Impression Patient is a 67 year old female with abdominal pain, RUQ and epigastric w/ nausea, one episode of vomiting. Ct evidence of mild acute pancreatitis, RUQ US without biliary dilation or gallstones, LFTs normal, Lipase 800 Etiology of acute pancreatitis unclear (no etoh, no new meds, does use NSAIds, no gallstones) will need OP evaluation to follow Plan NPO for bowel rest LR 200 ml/hr MRCP today analgesia PRN antiemetics PRN OP EUS Stop NSAIDs GI to follow, please call with any acute changes, questions or concerns ATTESTATION: I have performed a history and physical examination of this patient and reviewed the electronic record. Specifically, on physical examination there is mild LLQ tenderness to deep palpation. I have discussed the case with VALERIA Morales. The above note reflects my findings, conclusions, and recommendations. Braxton Palacios MD
[2017-05-17] MEDS: LACTATED RINGER'S 1000ML 1,000 ML IV SCH ×2 (12:50→17:28)
[2017-05-17 16:00] VITALS: O2SAT 98
[2017-05-17] MEDS ORDERED: LORAZEPAM 1 MG TAB PO SCH (17:00)
--- NOTE | 2017-05-17 18:40 | Progress Note ---
Internal Med Progress Note Date of Service: May 17, 2017. Provider Documentation: resting comfortably. has abdominal pain and requests to increase morphine dose. No nausea now. Afebrile. Awaiting MRCP.To continue aggressive fluids and npo status. GI on board. ASSESSMENT & PLAN: [] DVT PROPHYLAXIS [] DISPOSITION [] Vital Signs: Date Time Temp Pulse Resp B/P (MAP) Pulse Ox O2 Delivery O2 Flow Rate FiO2 05/17/17 16:00 98 Room Air 05/17/17 09:33 36.4 71 16 114/75 Room Air 05/17/17 07:24 70 17 128/89 98 05/17/17 06:04 66 18 123/51 96 Nasal Cannula 2.0 05/17/17 05:21 96 Nasal Cannula 2.0 05/17/17 05:21 86 Room Air 05/17/17 05:14 70 20 90/60 94 Room Air 05/17/17 03:43 81 20 126/67 93 Room Air 05/17/17 02:28 74 05/17/17 02:21 76 20 112/67 100 Nasal Cannula 2.0 05/17/17 00:46 74 16 110/68 95 Nasal Cannula 2.0 05/17/17 00:18 95 Nasal Cannula 2.0 05/17/17 00:16 66 15 110/68 80 Room Air 05/16/17 22:48 85 05/16/17 22:12 36.7 89 24 131/77 99 Room Air Lab Results: Results Past 24 Hours Test 05/16/17 22:45 05/17/17 07:10 05/17/17 08:17 Range/Units White Blood Count 14.00 14.93 4.8-10.8 K/uL Red Blood Count 5.43 4.73 4.2-5.4 M/uL Hemoglobin 14.5 12.4 12.0-16.0 g/dL Hematocrit 42.0 37.4 37-47 % Mean Corpuscular Volume 77.3 79.1 80-100 fL Mean Corpuscular Hemoglobin 26.7 26.2 25-34 pg Mean Corpuscular Hemoglobin Concent 34.5 33.2 32-36 g/dl Platelet Count 344 294 130-400 K/uL Mean Platelet Volume 9.7 9.5 7.4-10.4 fL Neutrophils (%) (Auto) 83.6 % Lymphocytes (%) (Auto) 9.4 % Monocytes (%) (Auto) 6.3 % Eosinophils (%) (Auto) 0.4 % Basophils (%) (Auto) 0.1 % Neutrophils # (Auto) 11.70 1.4-6.5 K/uL Lymphocytes # (Auto) 1.31 1.2-3.4 K/uL Monocytes # (Auto) 0.88 0.11-0.59 K/uL Eosinophils # (Auto) 0.06 0-0.5 K/uL Basophils # (Auto) 0.02 0-0.2 K/uL RDW Standard Deviation 47.3 48.4 36.4-46.3 fL RDW Coefficient of Variation 16.9 16.7 11.5-14.5 % Immature Granulocyte % (Auto) 0.2 % Immature Granulocyte # (Auto) 0.03 0.00-0.02 K/uL Urine Color YELLOW Urine Appearance CLEAR CLEAR Urine pH 8.0 4.5-7.5 Urine Specific [place] 1.022 1.000-1.030 Urine Protein NEG NEG Urine Glucose (UA) NEG NEG Urine Ketones 1+ NEG Urine Occult Blood NEG NEG Urine Nitrite NEG NEG Urine Bilirubin NEG NEG Urine Urobilinogen NEG NEG Urine Leukocyte Esterase NEG NEG Sodium Level 136 137 136-145 mmol/L Potassium Level 3.6 4.5 3.5-5.1 mmol/L Chloride Level 101 105 98-107 mmol/L Carbon Dioxide Level 25 26 21-32 mmol/L Anion Gap 10.0 5.0 3-11 mmol/L Blood Urea Nitrogen 10 9 7-18 mg/dl Creatinine 0.85 0.69 0.60-1.20 mg/dl Est Creatinine Clear Calc Drug Dose 71.0 87.4 ml/min Estimated GFR () 83.3 105.9 Estimated GFR (Non- 71.9 91.4 BUN/Creatinine Ratio 11.6 12.8 10-20 Random Glucose 118 114 70-99 mg/dl Calcium Level 8.7 7.7 8.5-10.1 mg/dl Total Bilirubin 0.4 0.3 0.2-1 mg/dl Direct Bilirubin < 0.1 0-0.2 mg/dl Aspartate Amino Transf (AST/SGOT) 14 13 15-37 U/L Alanine Aminotransferase (ALT/SGPT) 18 16 12-78 U/L Alkaline Phosphatase 80 64 45-117 U/L Troponin I < 0.015 0-0.045 ng/ml Total Protein 7.7 6.4 6.4-8.2 gm/dl Albumin 3.6 2.9 3.4-5.0 gm/dl Lipase 751 73-393 U/L Globulin 3.5 2.5-4.0 gm/dl Albumin/Globulin Ratio 0.8 0.9-2 Triglycerides Level 53 0-150 mg/dl Cholesterol Level 152 0-200 mg/dl HDL Cholesterol 43 mg/dl LDL Cholesterol, Calculated 98 mg/dl VLDL Cholesterol, Calculated 11 mg/dl Cholesterol/HDL Ratio 3.5 Thyroid Stimulating Hormone (TSH) 1.090 0.300-4.500 uIu/ml Prothrombin Time 11.2 9.0-12.0 SECONDS Prothromb Time International Ratio 1.1 0.9-1.1 Activated Partial Thromboplast Time 30.1 21.0-31.0 SECONDS Partial Thromboplastin Ratio 1.2
--- NOTE | 2017-05-17 21:31 | DIAGNOSTIC IMAGING REPORT ---
MRCP CLINICAL HISTORY: Pancreatitis. Evaluate for common bile duct stone or pancreas divisum. COMPARISON STUDY: CT of the abdomen and pelvis May 17, 2017. TECHNIQUE: Utilizing a 1.5 Opal magnet and dedicated coil, multiplanar, multi echo imaging of the upper abdomen was performed utilizing heavily T2 weighted pulsing sequences. No intravenous contrast was injected. FINDINGS: There is no intra or extrahepatic biliary ductal dilatation. No common bile duct calculi are identified. No gallstones are identified on this exam. The course and caliber of the main pancreatic duct is normal. There is mild peripancreatic infiltration and fluid. This extends into the anterior pararenal space. Numerous T2 hyperintense hepatic lesions reflect cysts, the largest of which is a 6.6 cm lateral segment lesion which contains a thin septation. Unenhanced images of the spleen, adrenal glands and kidneys are unremarkable. There is trace perihepatic fluid. There is trace perisplenic fluid. IMPRESSION: 1. Mild peripancreatic infiltration and fluid consistent with acute pancreatitis. 2. No biliary ductal dilatation. No common bile duct calculi. Normal course and caliber of the main pancreatic duct. 3. Numerous hepatic cysts. Electronically signed by: Skinny Perry M.D. 05/17/2017 9:30 PM Dictated Date/Time: 05/17/2017 9:17 PM
[2017-05-17] MEDS: TRIAMCINOLONE ACET NASAL SPRAY 10.8ML BTL NAE SCH (21:50)
[2017-05-17] MEDS: MONTELUKAST SOD 10 MG TAB PO SCH (21:51)
[2017-05-17] MEDS: FEXOFENADINE HCL 180 MG TAB PO SCH (21:51)
[2017-05-17 23:01] VITALS: BP 135/73; PULSE 81; TEMP 37.8; O2SAT 94
[2017-05-17 23:59] VITALS: TEMP 37
[2017-05-18] MEDS: LACTATED RINGER'S 1000ML 1,000 ML IV SCH ×6 (00:15→22:43)
[2017-05-18 07:30] VITALS: BP 111/67; PULSE 84; TEMP 38; O2SAT 91
[2017-05-18] MEDS: ENOXAPARIN 40 MG/0.4 ML SYR SQ SCH (08:00)
--- NOTE | 2017-05-18 08:22 | DIAGNOSTIC IMAGING REPORT ---
CHEST ONE VIEW PORTABLE CLINICAL HISTORY: INFILTRATE? Dyspnea COMPARISON STUDY: No previous studies for comparison. FINDINGS: The bones soft tissues and hemidiaphragms are normal. The cardiomediastinal silhouette is normal. The lungs are clear. The pulmonary vasculature is normal. Minimal platelike atelectasis both lung bases. IMPRESSION: Platelike atelectasis both lung bases. Otherwise negative study. The above report was generated using voice recognition software. It may contain grammatical, syntax or spelling errors. Electronically signed by: Patric Hanna M.D. 05/18/2017 8:21 AM Dictated Date/Time: 05/18/2017 8:20 AM
[2017-05-18 08:30] VITALS: TEMP 37.3
[2017-05-18 08:46] LABS: BASO % 0.2 %; BASO ABS # 0.02 K/uL (0-0.2); EOS % 0.9 %; EOS ABS # 0.11 K/uL (0-0.5); HEMATOCRIT 34.5 % (37-47); HEMOGLOBIN 11.1 g/dL (12.0-16.0); IG# 0.04 K/uL (0.00-0.02); LYMPH % 11.4 %; LYMPH ABS # 1.38 K/uL (1.2-3.4); MEAN CELL VOLUME 79.7 fL (80-100); MEAN CORPUSCULAR HEMOGLOBIN 25.6 pg (25-34); MEAN CORPUSCULAR HGB CONC 32.2 g/dl (32-36); MEAN PLATELET VOLUME 9.6 fL (7.4-10.4); MONO % 8.2 %; MONO ABS # 0.99 K/uL (0.11-0.59); NEUT ABS # 9.55 K/uL (1.4-6.5); PLATELET COUNT 246 K/uL (130-400); RED CELL DISTRIBUTION WIDTH SD 49.5 fL (36.4-46.3); WHITE BLOOD COUNT 12.09 K/uL (4.8-10.8)
[2017-05-18] MEDS: CEFTRIAXONE SOD INJ 1 GM in DEXTROSE 5% ADD-VANTAGE 50ML 50 ML IV SCH (09:06)
[2017-05-18 09:16] LABS: ALBUMIN 2.7 gm/dl (3.4-5.0); CALCIUM 8.3 mg/dl (8.5-10.1); CREATININE 0.68 mg/dl (0.60-1.20); POTASSIUM 3.7 mmol/L (3.5-5.1)
[2017-05-18 09:20] LABS: TOTAL PROTEIN 6.1 gm/dl (6.4-8.2)
--- NOTE | 2017-05-18 10:34 | Gastroenterology Progress Note ---
Progress Note Date of Service: May 18, 2017 Subjective Pt evaluation today including: conversation w/ patient, physical exam, chart review, lab review Pt is seen and evaluated, chart reviewed. Admitted w/ acute pancreatitis, etiology unclear. No evidence of GB stones, sludge, biliary dilation or divisum on RUQ US, CT or MRCP. Pt is clinically improving. Abd pain is largely resolved , now very mild w/ deep palpation. Located at epigastric region. No nausea, vomiting. No diarrhea, constipation. No fever, chills, CP, SOB. She only had urine OP of 300 cc overnight despite LR 200 ml/hr and feels dehydrated. Urine is dark, new since rounding last night night. No painful urination. New medications: none ETOH: rare, less than once a year none recently Supplements: none NSAIDs: 800 daily HS History of GI malignancy: maternal grandfather w/ colon CA MRCP 05/18/17: Mild peripancreatic infiltration and fluid consistent with acutepancreatitis. No biliary ductal dilatation. No common bile duct calculi. Normal course andcaliber of the main pancreatic duct. Numerous hepatic cysts. CT ABD/Pelvis 05/17/17: No evidence of bowel obstruction. No evidence of free air Mild pancreatic edema with subtle peripancreatic fat stranding. The findings are viewed as suspicious for acute pancreatitis and clinical correlation isadvocatedMultiple hepatic cysts RUQ US 05/17/17: No cholelithiasis or biliary ductal dilatation. No evidence of orcholecystitis. Trace peripancreatic fluid within sonographically normal- appearing pancreas.This could suggest interstitial edematous pancreatitis. Please correlate withlipase. Multiple hepatic cysts. These are better characterized on subsequently performed CT. EGD: none Colonoscopy: none, pt currently not interested in screening, suggested to call to arrange if she were to change her mind Flex sigmoidoscopy: years ago in OP setting, no records available Review of Systems Constitutional: No fever, No chills, No weight loss, No weakness, No fatigue ENT: No hearing loss, No unusual epistaxis, No trouble swallowing, No pain on swallowing Respiratory: No cough, No sputum, No wheezing, No shortness of breath Cardiac: No chest pain, No edema, No palpitations Abdomen: + dark urine, No pain, No nausea, No vomiting, No diarrhea, No constipation, No GI bleeding, No dysphagia, No odynophagia, No acolic stools, No jaundice Heme: No night sweats Endo: + excessive thirst Skin: No rash, No itch, No color change, No bleeding, No jaundice Medications Current Inpatient Medications Medications (Trade) Dose Ordered Sig/Joselyn Route Start Time Stop Time Status Last Admin Dose Admin Ioversol (Optiray 320) 100 ml UD PRN IV 05/17/17 03:30 05/21/17 03:29 Enoxaparin Sodium (Lovenox Inj) 40 mg DAILY SQ 05/17/17 09:30 06/16/17 09:29 Polyethylene (Miralax Powder Packet) 17 gm DAILY PRN PO 05/17/17 06:30 06/16/17 06:29 Ondansetron HCl (Zofran Inj) 4 mg Q6H PRN IV 05/17/17 06:30 06/16/17 06:29 05/17/17 12:18 4 MG Lactated Ringer's 1,000 ml @ 250 mls/hr Q4H IV 05/17/17 13:00 06/16/17 12:59 05/18/17 09:06 200 MLS/HR Fexofenadine HCl (Vanna Tab) 180 mg HS PO 05/17/17 21:00 06/16/17 20:59 05/17/17 21:51 180 MG Montelukast Sodium (Singulair Tab) 10 mg HS PO 05/17/17 21:00 06/16/17 20:59 05/17/17 21:51 10 MG Triamcinolone Acetonide (Nasacort Allergy 24hr) 1 sprays HS SAM 05/17/17 21:00 06/16/17 20:59 05/17/17 21:50 1 SPRAYS Morphine Sulfate (MoRPHine SULFATE INJ) 6 mg Q3HWA PRN IV 05/17/17 17:00 05/31/17 06:44 Ceftriaxone Sodium 1 gm/ Dextrose 50 ml @ 100 mls/hr Q24H IV 05/18/17 08:00 05/20/17 07:59 05/18/17 09:06 100 MLS/HR Acetaminophen (Tylenol Tab) 650 mg Q4H PRN PO 05/18/17 07:45 06/17/17 07:44 Objective Vital Signs Date Time Temp Pulse Resp B/P (MAP) Pulse Ox O2 Delivery O2 Flow Rate FiO2 05/18/17 09:30 Room Air 05/18/17 08:30 37.3 05/18/17 07:30 38.0 84 20 111/67 (82) 91 Room Air 05/18/17 00:30 Room Air 05/17/17 23:59 37.0 05/17/17 23:01 37.8 81 18 135/73 (93) 94 Room Air 05/17/17 16:00 98 Room Air Physical Exam General Appearance: no apparent distress Eyes: PERRL ENT: hearing grossly normal Neck: supple, no JVD, trachea midline Respiratory/Chest: lungs clear, normal breath sounds, no respiratory distress, no accessory muscle use Cardiovascular: regular rate, rhythm, no edema, no gallop, no JVD Abdomen: normal bowel sounds, soft, no organomegaly, no pulsatile mass, + tenderness (very mild upper abd pain) Neurologic/Psych: alert, normal mood/affect, oriented x 3 Skin: normal color, no jaundice, warm/dry, no rash Laboratory Results Last 24 Hours Test 05/18/17 08:20 White Blood Count 12.09 K/uL Red Blood Count 4.33 M/uL Hemoglobin 11.1 g/dL Hematocrit 34.5 % Mean Corpuscular Volume 79.7 fL Mean Corpuscular Hemoglobin 25.6 pg Mean Corpuscular Hemoglobin Concent 32.2 g/dl Platelet Count 246 K/uL Mean Platelet Volume 9.6 fL Neutrophils (%) (Auto) 79.0 % Lymphocytes (%) (Auto) 11.4 % Monocytes (%) (Auto) 8.2 % Eosinophils (%) (Auto) 0.9 % Basophils (%) (Auto) 0.2 % Neutrophils # (Auto) 9.55 K/uL Lymphocytes # (Auto) 1.38 K/uL Monocytes # (Auto) 0.99 K/uL Eosinophils # (Auto) 0.11 K/uL Basophils # (Auto) 0.02 K/uL RDW Standard Deviation 49.5 fL RDW Coefficient of Variation 17.0 % Immature Granulocyte % (Auto) 0.3 % Immature Granulocyte # (Auto) 0.04 K/uL Sodium Level 139 mmol/L Potassium Level 3.7 mmol/L Chloride Level 106 mmol/L Carbon Dioxide Level 25 mmol/L Anion Gap 8.0 mmol/L Blood Urea Nitrogen 9 mg/dl Creatinine 0.68 mg/dl Est Creatinine Clear Calc Drug Dose 90.7 ml/min Estimated GFR () 106.4 Estimated GFR (Non- 91.8 BUN/Creatinine Ratio 12.6 Random Glucose 65 mg/dl Calcium Level 8.3 mg/dl Total Bilirubin 0.5 mg/dl Aspartate Amino Transf (AST/SGOT) 10 U/L Alanine Aminotransferase (ALT/SGPT) 14 U/L Alkaline Phosphatase 54 U/L Total Protein 6.1 gm/dl Albumin 2.7 gm/dl Globulin 3.4 gm/dl Albumin/Globulin Ratio 0.8 Assessment and Plan Patient is a 67 year old female with abdominal pain, RUQ and epigastric w/ nausea, one episode of vomiting. Ct evidence of mild acute pancreatitis, RUQ US without biliary dilation or gallstones, LFTs normal, Lipase 800. Etiology of acute pancreatitis unclear (no etoh, no new meds, does use NSAIds, no gallstones ) will need OP evaluation to follow. She is clinically improving, did have low urinary output overnight w/ darker urine. - Clear liquids - Increase LR 250 ml/hr - analgesia PRN - antiemetics PRN - OP EUS - Stop NSAIDs - Pt should have an OP colonoscopy for colon cancer if she is agreeable GI to follow, please call with any questions, concerns or acute changes. ATTESTATION: I have performed a history and physical examination of this patient and reviewed the electronic record. Specifically, on physical examination there is mild epigastric tenderness. I have discussed the case with VALERIA Morales. The above note reflects my findings, conclusions, and recommendations. Braxton Palacios MD
[2017-05-18 15:53] VITALS: BP 110/53; PULSE 72; TEMP 37.2; O2SAT 94
[2017-05-18] MEDS: ACETAMINOPHEN 325 MG TAB PO PRN ×2 (17:11→23:45)
--- NOTE | 2017-05-18 19:21 | Progress Note ---
Internal Med Progress Note Date of Service: May 18, 2017. Provider Documentation: nausea and abdominal pain much improved afebrile ambulating fine tolerating clears no sob or cough Exam: General-alert and Oriented. Not in distress. ENT-normal hearing Neck-no neck masses Lungs-cta b/l no wheezing or crackles Heart-s1 and s2 heard regular no murmurs Abdomen-soft bowel sounds present mild epigastric tenderness no distension Extremities-no erythema no edema Neuro-alert and awake moves extremities ASSESSMENT & PLAN: Acute pancreatitis aggressive fluids iv pain meds and antiemetics MRCP no gall stones pancreatic ducts ok tolerating clears GI o board and plan for EUS as out patient Fever UA positive on Rocephin will f/u cx. DVT PROPHYLAXIS scds DISPOSITION possible d/c in 1-2 days Vital Signs: Date Time Temp Pulse Resp B/P (MAP) Pulse Ox O2 Delivery O2 Flow Rate FiO2 05/18/17 16:00 Room Air 05/18/17 15:53 37.2 72 20 110/53 (72) 94 Room Air 05/18/17 09:30 Room Air 05/18/17 08:30 37.3 05/18/17 07:30 38.0 84 20 111/67 (82) 91 Room Air 05/18/17 00:30 Room Air 05/17/17 23:59 37.0 05/17/17 23:01 37.8 81 18 135/73 (93) 94 Room Air Lab Results: Results Past 24 Hours Test 05/18/17 08:20 05/18/17 11:35 Range/Units White Blood Count 12.09 4.8-10.8 K/uL Red Blood Count 4.33 4.2-5.4 M/uL Hemoglobin 11.1 12.0-16.0 g/dL Hematocrit 34.5 37-47 % Mean Corpuscular Volume 79.7 80-100 fL Mean Corpuscular Hemoglobin 25.6 25-34 pg Mean Corpuscular Hemoglobin Concent 32.2 32-36 g/dl Platelet Count 246 130-400 K/uL Mean Platelet Volume 9.6 7.4-10.4 fL Neutrophils (%) (Auto) 79.0 % Lymphocytes (%) (Auto) 11.4 % Monocytes (%) (Auto) 8.2 % Eosinophils (%) (Auto) 0.9 % Basophils (%) (Auto) 0.2 % Neutrophils # (Auto) 9.55 1.4-6.5 K/uL Lymphocytes # (Auto) 1.38 1.2-3.4 K/uL Monocytes # (Auto) 0.99 0.11-0.59 K/uL Eosinophils # (Auto) 0.11 0-0.5 K/uL Basophils # (Auto) 0.02 0-0.2 K/uL RDW Standard Deviation 49.5 36.4-46.3 fL RDW Coefficient of Variation 17.0 11.5-14.5 % Immature Granulocyte % (Auto) 0.3 % Immature Granulocyte # (Auto) 0.04 0.00-0.02 K/uL Sodium Level 139 136-145 mmol/L Potassium Level 3.7 3.5-5.1 mmol/L Chloride Level 106 98-107 mmol/L Carbon Dioxide Level 25 21-32 mmol/L Anion Gap 8.0 3-11 mmol/L Blood Urea Nitrogen 9 7-18 mg/dl Creatinine 0.68 0.60-1.20 mg/dl Est Creatinine Clear Calc Drug Dose 90.7 ml/min Estimated GFR () 106.4 Estimated GFR (Non- 91.8 BUN/Creatinine Ratio 12.6 10-20 Random Glucose 65 70-99 mg/dl Calcium Level 8.3 8.5-10.1 mg/dl Total Bilirubin 0.5 0.2-1 mg/dl Aspartate Amino Transf (AST/SGOT) 10 15-37 U/L Alanine Aminotransferase (ALT/SGPT) 14 12-78 U/L Alkaline Phosphatase 54 45-117 U/L Total Protein 6.1 6.4-8.2 gm/dl Albumin 2.7 3.4-5.0 gm/dl Globulin 3.4 2.5-4.0 gm/dl Albumin/Globulin Ratio 0.8 0.9-2 Urine Color DK YELLOW Urine Appearance CLEAR CLEAR Urine pH 5.5 4.5-7.5 Urine Specific [place] 1.024 1.000-1.030 Urine Protein TRACE NEG Urine Glucose (UA) NEG NEG Urine Ketones 3+ NEG Urine Occult Blood TRACE NEG Urine Nitrite NEG NEG Urine Bilirubin NEG NEG Urine Urobilinogen NEG NEG Urine Leukocyte Esterase SMALL NEG Urine WBC (Auto) 10-30 0-5 /hpf Urine RBC (Auto) 0-4 0-4 /hpf Urine Hyaline Casts (Auto) 10-30 0-5 /lpf Urine Epithelial Cells (Auto) >30 0-5 /lpf Urine Bacteria (Auto) NEG NEG Microbiology Results 05/18/17 Blood Culture, Received Pending 05/18/17 Blood Culture, Received Pending 05/18/17 Urine Culture, Received Pending
[2017-05-18] MEDS: TRIAMCINOLONE ACET NASAL SPRAY 10.8ML BTL NAE SCH (20:50)
[2017-05-18] MEDS: MONTELUKAST SOD 10 MG TAB PO SCH (20:50)
[2017-05-18] MEDS: FEXOFENADINE HCL 180 MG TAB PO SCH (20:50)
[2017-05-19] VITALS (7 sets, daily range): BP systolic 117–152; BP diastolic 53–88; PULSE 63–75; TEMP 36.4–36.8; O2SAT 96–97
[2017-05-19] MEDS: LACTATED RINGER'S 1000ML 1,000 ML IV SCH (02:52)
[2017-05-19] MEDS: ENOXAPARIN 40 MG/0.4 ML SYR SQ SCH (08:00)
[2017-05-19] MEDS: CEFTRIAXONE SOD INJ 1 GM in DEXTROSE 5% ADD-VANTAGE 50ML 50 ML IV SCH (08:12)
[2017-05-19 09:01] LABS: HEMATOCRIT 31.2 % (37-47); HEMOGLOBIN 10.4 g/dL (12.0-16.0); MEAN CELL VOLUME 78.6 fL (80-100); MEAN CORPUSCULAR HEMOGLOBIN 26.2 pg (25-34); MEAN CORPUSCULAR HGB CONC 33.3 g/dl (32-36); MEAN PLATELET VOLUME 9.3 fL (7.4-10.4); PLATELET COUNT 256 K/uL (130-400); RED CELL DISTRIBUTION WIDTH CV 16.8 % (11.5-14.5); RED CELL DISTRIBUTION WIDTH SD 48.1 fL (36.4-46.3); WHITE BLOOD COUNT 8.29 K/uL (4.8-10.8)
[2017-05-19 09:29] LABS: CALCIUM 8.5 mg/dl (8.5-10.1); CREATININE 0.53 mg/dl (0.60-1.20); POTASSIUM 3.6 mmol/L (3.5-5.1)
--- NOTE | 2017-05-19 10:25 | Gastroenterology Progress Note ---
Progress Note Date of Service: May 19, 2017 Subjective Pt evaluation today including: conversation w/ patient, physical exam, chart review, lab review Pt was seen and evaluated, chart reviewed. Overnight noted SOB, abdominal fullness - was evaluated by hospitalist who decreased IVF w/ resolution of her symptoms. She had trial of clears yesterday, tolerated. Does have some abdominal bloating, no pain. No nausea, vomiting. Had a BM which was normal - no black stools, bloody stools or wiley colored stools. No fever, chills, CP, SOB , lightheadedness, dizziness. New medications: none ETOH: rare, less than once a year none recently Supplements: none NSAIDs: 800 daily HS History of GI malignancy: maternal grandfather w/ colon CA MRCP 05/18/17: Mild peripancreatic infiltration and fluid consistent with acutepancreatitis. No biliary ductal dilatation. No common bile duct calculi. Normal course andcaliber of the main pancreatic duct. Numerous hepatic cysts. CT ABD/Pelvis 05/17/17: No evidence of bowel obstruction. No evidence of free air Mild pancreatic edema with subtle peripancreatic fat stranding. The findings are viewed as suspicious for acute pancreatitis and clinical correlation isadvocatedMultiple hepatic cysts RUQ US 05/17/17: No cholelithiasis or biliary ductal dilatation. No evidence of orcholecystitis. Trace peripancreatic fluid within sonographically normal- appearing pancreas.This could suggest interstitial edematous pancreatitis. Please correlate withlipase. Multiple hepatic cysts. These are better characterized on subsequently performed CT. EGD: none Colonoscopy: none, pt currently not interested in screening, suggested to call to arrange if she were to change her mind Flex sigmoidoscopy: years ago in OP setting, no records available Review of Systems Constitutional: No fever, No chills, No sweats, No weight loss, No weakness, No fatigue Respiratory: No cough, No sputum, No wheezing, No shortness of breath, No dyspnea on exertion, No hemoptysis Cardiac: No chest pain, No orthopnea, No edema, No claudication Abdomen: + problem reported (+ bloating), No pain, No nausea, No vomiting, No diarrhea, No constipation, No GI bleeding, No dysphagia, No odynophagia, No jaundice, No dark urine Endo: No fatigue Skin: No rash, No itch, No color change, No bleeding, No jaundice Medications Current Inpatient Medications Medications (Trade) Dose Ordered Sig/Joselyn Route Start Time Stop Time Status Last Admin Dose Admin Ioversol (Optiray 320) 100 ml UD PRN IV 05/17/17 03:30 05/21/17 03:29 Enoxaparin Sodium (Lovenox Inj) 40 mg DAILY SQ 05/17/17 09:30 06/16/17 09:29 Polyethylene (Miralax Powder Packet) 17 gm DAILY PRN PO 05/17/17 06:30 06/16/17 06:29 Ondansetron HCl (Zofran Inj) 4 mg Q6H PRN IV 05/17/17 06:30 06/16/17 06:29 05/17/17 12:18 4 MG Lactated Ringer's 1,000 ml @ 250 mls/hr Q4H IV 05/17/17 13:00 06/16/17 12:59 Future Hold 05/19/17 02:52 250 MLS/HR Fexofenadine HCl (Vanna Tab) 180 mg HS PO 05/17/17 21:00 06/16/17 20:59 05/18/17 20:50 180 MG Montelukast Sodium (Singulair Tab) 10 mg HS PO 05/17/17 21:00 06/16/17 20:59 05/18/17 20:50 10 MG Triamcinolone Acetonide (Nasacort Allergy 24hr) 1 sprays HS SAM 05/17/17 21:00 06/16/17 20:59 05/18/17 20:50 1 SPRAYS Morphine Sulfate (MoRPHine SULFATE INJ) 6 mg Q3HWA PRN IV 05/17/17 17:00 05/31/17 06:44 Ceftriaxone Sodium 1 gm/ Dextrose 50 ml @ 100 mls/hr Q24H IV 05/18/17 08:00 05/20/17 07:59 05/19/17 08:12 100 MLS/HR Acetaminophen (Tylenol Tab) 650 mg Q4H PRN PO 05/18/17 07:45 06/17/17 07:44 05/18/17 23:45 650 MG Objective Vital Signs Date Time Temp Pulse Resp B/P (MAP) Pulse Ox O2 Delivery O2 Flow Rate FiO2 05/19/17 08:51 97 Room Air 05/19/17 07:56 36.8 63 18 131/88 (102) 97 Room Air 05/19/17 07:53 36.8 63 18 131/88 (102) 97 Room Air 05/19/17 00:30 Room Air 05/19/17 00:13 36.7 69 20 117/53 (74) 96 Room Air 05/18/17 20:00 Room Air 05/18/17 16:00 Room Air 05/18/17 15:53 37.2 72 20 110/53 (72) 94 Room Air Physical Exam General Appearance: no apparent distress Eyes: PERRL ENT: hearing grossly normal Neck: supple, thyroid normal, no JVD, trachea midline Respiratory/Chest: lungs clear, normal breath sounds, no respiratory distress, no accessory muscle use Cardiovascular: regular rate, rhythm, no edema, no gallop, no JVD Abdomen: normal bowel sounds, non tender, soft, no organomegaly, no pulsatile mass Neurologic/Psych: alert, normal mood/affect, oriented x 3 Skin: normal color, no jaundice, warm/dry, no rash Laboratory Results Last 24 Hours Test 05/18/17 11:35 05/19/17 08:48 Urine Color DK YELLOW Urine Appearance CLEAR Urine pH 5.5 Urine Specific [place] 1.024 Urine Protein TRACE Urine Glucose (UA) NEG Urine Ketones 3+ Urine Occult Blood TRACE Urine Nitrite NEG Urine Bilirubin NEG Urine Urobilinogen NEG Urine Leukocyte Esterase SMALL Urine WBC (Auto) 10-30 /hpf Urine RBC (Auto) 0-4 /hpf Urine Hyaline Casts (Auto) 10-30 /lpf Urine Epithelial Cells (Auto) >30 /lpf Urine Bacteria (Auto) NEG White Blood Count 8.29 K/uL Red Blood Count 3.97 M/uL Hemoglobin 10.4 g/dL Hematocrit 31.2 % Mean Corpuscular Volume 78.6 fL Mean Corpuscular Hemoglobin 26.2 pg Mean Corpuscular Hemoglobin Concent 33.3 g/dl RDW Standard Deviation 48.1 fL RDW Coefficient of Variation 16.8 % Platelet Count 256 K/uL Mean Platelet Volume 9.3 fL Sodium Level 142 mmol/L Potassium Level 3.6 mmol/L Chloride Level 107 mmol/L Carbon Dioxide Level 29 mmol/L Anion Gap 6.0 mmol/L Blood Urea Nitrogen 6 mg/dl Creatinine 0.53 mg/dl Est Creatinine Clear Calc Drug Dose 116.3 ml/min Estimated GFR () 115.5 Estimated GFR (Non- 99.6 BUN/Creatinine Ratio 11.0 Random Glucose 85 mg/dl Calcium Level 8.5 mg/dl Assessment and Plan Patient is a 67 year old female with abdominal pain, RUQ and epigastric w/ nausea, one episode of vomiting. Ct evidence of mild acute pancreatitis, RUQ US without biliary dilation or gallstones, LFTs normal, Lipase 800. Etiology of acute pancreatitis unclear (no etoh, no new meds, does use NSAIds, no gallstones ) will need OP evaluation to follow. She is clinically improving, did have low urinary output overnight w/ darker urine so fluids were increased overnight. Notes feeling bloating but abd pain is resolved. - Clear liquids - If tolerated can advance to low fat diet for lunch - Ok to d/c IVF from GI standpoint as pt is tolerating clears - analgesia PRN - antiemetics PRN - OP EUS - Stop NSAIDs - Pt should have an OP colonoscopy for colon cancer if she is agreeable GI to follow, please call with any questions, concerns or acute changes. ATTESTATION: I have performed a history and physical examination of this patient and reviewed the electronic record. Specifically, on history there is no pain on eating and she is having bowel movements, and on physical examination there is no significant abdominal tenderness, but there is mild distention. I have discussed the case with VALERIA Morales. The above note reflects my findings, conclusions, and recommendations. Braxton Palacios MD
--- NOTE | 2017-05-19 18:02 | Progress Note ---
Internal Med Progress Note Date of Service: May 19, 2017. Provider Documentation: no abdominal pain no burning micturition tolerating soft diet afebrile no sob ambulating fine Exam: General-alert and Oriented. Not in distress. ENT-normal hearing Neck-no neck masses Lungs-cta b/l no wheezing or crackles Heart-s1 and s2 heard regular no murmurs Abdomen-soft bowel sounds present no tenderness no distension Extremities-no erythema no edema Neuro-alert and awake moves extremities ASSESSMENT & PLAN: Acute pancreatitis aggressive fluids iv pain meds and antiemetics MRCP no gall stones pancreatic ducts ok tolerating clears advanced to soft diet stopped fluids GI o board and plan for EUS as out patient Fever UA positive on Rocephin will f/u cx. DVT PROPHYLAXIS scds DISPOSITION possible d/c in am Vital Signs: Date Time Temp Pulse Resp B/P (MAP) Pulse Ox O2 Delivery O2 Flow Rate FiO2 05/19/17 15:20 36.4 75 18 152/88 (109) 97 Room Air 05/19/17 15:06 97 Room Air 05/19/17 11:44 97 05/19/17 08:51 97 Room Air 05/19/17 07:56 36.8 63 18 131/88 (102) 97 Room Air 05/19/17 07:53 36.8 63 18 131/88 (102) 97 Room Air 05/19/17 00:30 Room Air 05/19/17 00:13 36.7 69 20 117/53 (74) 96 Room Air 05/18/17 20:00 Room Air Lab Results: Results Past 24 Hours Test 05/19/17 08:48 Range/Units White Blood Count 8.29 4.8-10.8 K/uL Red Blood Count 3.97 4.2-5.4 M/uL Hemoglobin 10.4 12.0-16.0 g/dL Hematocrit 31.2 37-47 % Mean Corpuscular Volume 78.6 80-100 fL Mean Corpuscular Hemoglobin 26.2 25-34 pg Mean Corpuscular Hemoglobin Concent 33.3 32-36 g/dl RDW Standard Deviation 48.1 36.4-46.3 fL RDW Coefficient of Variation 16.8 11.5-14.5 % Platelet Count 256 130-400 K/uL Mean Platelet Volume 9.3 7.4-10.4 fL Sodium Level 142 136-145 mmol/L Potassium Level 3.6 3.5-5.1 mmol/L Chloride Level 107 98-107 mmol/L Carbon Dioxide Level 29 21-32 mmol/L Anion Gap 6.0 3-11 mmol/L Blood Urea Nitrogen 6 7-18 mg/dl Creatinine 0.53 0.60-1.20 mg/dl Est Creatinine Clear Calc Drug Dose 116.3 ml/min Estimated GFR () 115.5 Estimated GFR (Non- 99.6 BUN/Creatinine Ratio 11.0 10-20 Random Glucose 85 70-99 mg/dl Calcium Level 8.5 8.5-10.1 mg/dl
[2017-05-19] MEDS: FEXOFENADINE HCL 180 MG TAB PO SCH (20:52)
[2017-05-19] MEDS: MONTELUKAST SOD 10 MG TAB PO SCH (20:52)
[2017-05-19] MEDS: TRIAMCINOLONE ACET NASAL SPRAY 10.8ML BTL NAE SCH (20:53)
[2017-05-20 00:56] VITALS: BP 122/71; PULSE 72; TEMP 37; O2SAT 97
[2017-05-20 06:23] LABS: HEMATOCRIT 32.1 % (37-47); HEMOGLOBIN 10.6 g/dL (12.0-16.0); MEAN CELL VOLUME 79.1 fL (80-100); MEAN CORPUSCULAR HEMOGLOBIN 26.1 pg (25-34); MEAN PLATELET VOLUME 9.5 fL (7.4-10.4); PLATELET COUNT 249 K/uL (130-400); RED CELL DISTRIBUTION WIDTH CV 16.5 % (11.5-14.5); WHITE BLOOD COUNT 7.25 K/uL (4.8-10.8)
[2017-05-20 06:47] LABS: CREATININE 0.56 mg/dl (0.60-1.20)
[2017-05-20] MEDS: ENOXAPARIN 40 MG/0.4 ML SYR SQ SCH (08:00)
[2017-05-20 08:30] VITALS: BP 130/72; PULSE 67; TEMP 36.7; O2SAT 94
--- NOTE | 2017-05-20 10:45 | Gastroenterology Progress Note ---
Progress Note Date of Service: May 20, 2017 Subjective Pt evaluation today including: conversation w/ patient, physical exam, chart review, lab review Pt was seen and evaluated, chart reviewed. No acute events overnight. Had low fat diet advancement, there was some mild RUQ pain, but she notes she often times get this. No epigastric pain. No nausea, vomiting. No fever, chills, CP, SOB. Wants to go home. New medications: none ETOH: rare, less than once a year none recently Supplements: none NSAIDs: 800 daily HS History of GI malignancy: maternal grandfather w/ colon CA MRCP 05/18/17: Mild peripancreatic infiltration and fluid consistent with acutepancreatitis. No biliary ductal dilatation. No common bile duct calculi. Normal course andcaliber of the main pancreatic duct. Numerous hepatic cysts. CT ABD/Pelvis 05/17/17: No evidence of bowel obstruction. No evidence of free air Mild pancreatic edema with subtle peripancreatic fat stranding. The findings are viewed as suspicious for acute pancreatitis and clinical correlation isadvocatedMultiple hepatic cysts RUQ US 05/17/17: No cholelithiasis or biliary ductal dilatation. No evidence of orcholecystitis. Trace peripancreatic fluid within sonographically normal- appearing pancreas.This could suggest interstitial edematous pancreatitis. Please correlate withlipase. Multiple hepatic cysts. These are better characterized on subsequently performed CT. EGD: none Colonoscopy: none, pt currently not interested in screening, suggested to call to arrange if she were to change her mind Flex sigmoidoscopy: years ago in OP setting, no records available Review of Systems Constitutional: No fever, No chills, No weight loss, No weakness, No fatigue Respiratory: No cough, No sputum, No wheezing, No shortness of breath Cardiac: No chest pain, No orthopnea, No edema, No palpitations Abdomen: No pain, No nausea, No vomiting, No diarrhea, No constipation, No GI bleeding Skin: No rash, No itch, No bleeding, No jaundice Medications Current Inpatient Medications Medications (Trade) Dose Ordered Sig/Joselyn Route Start Time Stop Time Status Last Admin Dose Admin Ioversol (Optiray 320) 100 ml UD PRN IV 05/17/17 03:30 05/21/17 03:29 Enoxaparin Sodium (Lovenox Inj) 40 mg DAILY SQ 05/17/17 09:30 06/16/17 09:29 Polyethylene (Miralax Powder Packet) 17 gm DAILY PRN PO 05/17/17 06:30 06/16/17 06:29 Ondansetron HCl (Zofran Inj) 4 mg Q6H PRN IV 05/17/17 06:30 06/16/17 06:29 05/17/17 12:18 4 MG Lactated Ringer's 1,000 ml @ 250 mls/hr Q4H IV 05/17/17 13:00 06/16/17 12:59 Future Hold 05/19/17 02:52 250 MLS/HR Fexofenadine HCl (Vanna Tab) 180 mg HS PO 05/17/17 21:00 06/16/17 20:59 05/19/17 20:52 180 MG Montelukast Sodium (Singulair Tab) 10 mg HS PO 05/17/17 21:00 06/16/17 20:59 05/19/17 20:52 10 MG Triamcinolone Acetonide (Nasacort Allergy 24hr) 1 sprays HS SAM 05/17/17 21:00 06/16/17 20:59 05/19/17 20:53 1 SPRAYS Morphine Sulfate (MoRPHine SULFATE INJ) 6 mg Q3HWA PRN IV 05/17/17 17:00 05/31/17 06:44 Acetaminophen (Tylenol Tab) 650 mg Q4H PRN PO 05/18/17 07:45 06/17/17 07:44 05/18/17 23:45 650 MG Objective Vital Signs Date Time Temp Pulse Resp B/P (MAP) Pulse Ox O2 Delivery O2 Flow Rate FiO2 05/20/17 08:30 Room Air 05/20/17 08:30 36.7 67 16 130/72 (91) 94 05/20/17 01:15 Room Air 05/20/17 00:56 37.0 72 18 122/71 (88) 97 Room Air 05/19/17 19:54 Room Air 05/19/17 15:20 36.4 75 18 152/88 (109) 97 Room Air 05/19/17 15:06 97 Room Air 05/19/17 11:44 97 Physical Exam General Appearance: no apparent distress Eyes: PERRL ENT: hearing grossly normal Neck: supple, trachea midline Respiratory/Chest: lungs clear, normal breath sounds, no respiratory distress, no accessory muscle use Cardiovascular: regular rate, rhythm, no edema, no gallop, no JVD Abdomen: normal bowel sounds, non tender, soft, no organomegaly Neurologic/Psych: alert, normal mood/affect, oriented x 3 Skin: normal color, no jaundice, warm/dry, no rash Laboratory Results Last 24 Hours Test 05/20/17 06:09 White Blood Count 7.25 K/uL Red Blood Count 4.06 M/uL Hemoglobin 10.6 g/dL Hematocrit 32.1 % Mean Corpuscular Volume 79.1 fL Mean Corpuscular Hemoglobin 26.1 pg Mean Corpuscular Hemoglobin Concent 33.0 g/dl RDW Standard Deviation 48.0 fL RDW Coefficient of Variation 16.5 % Platelet Count 249 K/uL Mean Platelet Volume 9.5 fL Creatinine 0.56 mg/dl Est Creatinine Clear Calc Drug Dose 113.1 ml/min Estimated GFR () 113.4 Estimated GFR (Non- 97.8 Assessment and Plan Patient is a 67 year old female with abdominal pain, RUQ and epigastric w/ nausea, one episode of vomiting. Ct evidence of mild acute pancreatitis, RUQ US without biliary dilation or gallstones, LFTs normal, Lipase 800. Etiology of acute pancreatitis unclear (no etoh, no new meds, does use NSAIds, no gallstones ) will need OP evaluation to follow. She is clinically improving, did have low urinary output overnight w/ darker urine so fluids were increased overnight. Notes feeling bloating but abd pain is resolved. - Low fat as tolerated - OP EUS - Stop NSAIDs - Pt should have an OP colonoscopy for colon cancer if she is agreeable GI to sign off. Please call with any questions, concerns or acute changes.
--- NOTE | 2017-05-20 14:11 | Discharge Instructions ---
Discharge Instructions Date of Service May 20, 2017. Admission Reason for Admission: Pancreatitis Discharge Discharge Diagnosis / Problem: ACUTE PANCREATITIS Discharge Goals Goal(s): Decrease discomfort, Improve function Activity Recommendations Activity Limitations: resume your previous activity . Instructions / Follow-Up Instructions / Follow-Up FOLLOWUP WITH FAMILY DOCTOR CARRIE WESTBROOK ON May AT 7:45AM FOLLOWUP WITH GI SCHEDULED EUS AND COLONOSCOPY PER GI. Current Hospital Diet Patient's current hospital diet: Low Fat Diet, Regular Diet Discharge Diet Recommended Diet: Regular Diet, Low Fat Diet Pending Studies Studies pending at discharge: no Laboratory Results Lipid Panel Test 05/17/17 07:10 Range/Units Triglycerides Level 53 0-150 mg/dl Cholesterol Level 152 0-200 mg/dl HDL Cholesterol 43 mg/dl Cholesterol/HDL Ratio 3.5 LDL Cholesterol, Calculated 98 mg/dl Work Instructions Additional Instructions: MEDICALLY CLEAR TO GO TO WORK ON May Medical Emergencies . Who to Call and When: Medical Emergencies: If at any time you feel your situation is an emergency, please call 911 immediately. . Non-Emergent Contact Non-Emergency issues call your: Primary Care Provider . . "Provider Documentation" section prepared by Kris Bolaños. .
[2017-05-20 14:29] VITALS: BP 130/72; PULSE 67; TEMP 36.7; O2SAT 94
--- NOTE | 2017-05-20 18:50 | Progress Note ---
Internal Med Progress Note Date of Service: May 20, 2017. Provider Documentation: resting comfortably tolerating low fat diet no nausea or abdominal pain no sob o for discharge Exam: General-alert and Oriented. Not in distress. ENT-normal hearing Neck-no neck masses Lungs-cta b/l no wheezing or crackles Heart-s1 and s2 heard regular no murmurs Abdomen-soft bowel sounds present no tenderness no distension Extremities-no erythema no edema Neuro-alert and awake moves extremities ASSESSMENT & PLAN: Acute pancreatitis aggressive fluids iv pain meds and antiemetics MRCP no gall stones pancreatic ducts ok tolerating soft diet stopped fluids GI o board and plan for EUS as out patient discharged home Fever UA positive on Rocephin cx no growth. discharged home Vital Signs: Date Time Temp Pulse Resp B/P (MAP) Pulse Ox O2 Delivery O2 Flow Rate FiO2 05/20/17 14:29 36.7 67 16 94 Room Air 05/20/17 08:30 Room Air 05/20/17 08:30 36.7 67 16 130/72 (91) 94 05/20/17 01:15 Room Air 05/20/17 00:56 37.0 72 18 122/71 (88) 97 Room Air 05/19/17 19:54 Room Air Lab Results: Results Past 24 Hours Test 05/20/17 06:09 Range/Units White Blood Count 7.25 4.8-10.8 K/uL Red Blood Count 4.06 4.2-5.4 M/uL Hemoglobin 10.6 12.0-16.0 g/dL Hematocrit 32.1 37-47 % Mean Corpuscular Volume 79.1 80-100 fL Mean Corpuscular Hemoglobin 26.1 25-34 pg Mean Corpuscular Hemoglobin Concent 33.0 32-36 g/dl RDW Standard Deviation 48.0 36.4-46.3 fL RDW Coefficient of Variation 16.5 11.5-14.5 % Platelet Count 249 130-400 K/uL Mean Platelet Volume 9.5 7.4-10.4 fL Creatinine 0.56 0.60-1.20 mg/dl Est Creatinine Clear Calc Drug Dose 113.1 ml/min Estimated GFR () 113.4 Estimated GFR (Non- 97.8
--- NOTE | 2017-05-20 19:30 | Discharge Summary ---
Discharge Summary Date of Service May 20, 2017. Discharge Summary Admission Date: May 17, 2017 at 06:32 Discharge Date: May 20, 2017 Discharge Disposition: Home Principal Diagnosis: ACUTE PANCREATITIS Secondary Diagnoses/Problems: (1) RBBB (2) History of skin cancer (3) Allergic rhinitis Procedures: GALL BLADDER US: 1. No cholelithiasis or biliary ductal dilatation. No evidence of or cholecystitis. 2. Trace peripancreatic fluid within sonographically normal-appearing pancreas. This could suggest interstitial edematous pancreatitis. Please correlate with lipase. 3. Multiple hepatic cysts. These are better characterized on subsequently performed CT. CT ABD/PELVIS; 1. No evidence of bowel obstruction. No evidence of free air 2. Mild pancreatic edema with subtle peripancreatic fat stranding. The findings are viewed as suspicious for acute pancreatitis and clinical correlation is advocated 3. Multiple hepatic cysts MRCP: 1. Mild peripancreatic infiltration and fluid consistent with acute pancreatitis. 2. No biliary ductal dilatation. No common bile duct calculi. Normal course and caliber of the main pancreatic duct. 3. Numerous hepatic cysts. CXR: : Platelike atelectasis both lung bases. Otherwise negative study. Consultations: GI Medication Reconciliation Continued Medications: Coenzyme Q10 (Ubidecarenone) (Coq-10) Unknown Strength Cap Unknown Dose PO DAILY Fexofenadine Hcl (Vanna Allergy) 180 Mg Tab 1 TAB PO HS for 14 Days, #14 TAB 2 Refills Melatonin (Kp Melatonin) 3 Mg Tab 6 MG PO HS for 30 Days, #30 TAB Montelukast Sodium (Singulair) 10 Mg Tab 10 MG PO HS, TAB Probiotic Product (Probiotic) 1 Tab Tab 1 TAB PO DAILY Triamcinolone Acetonide (Nasal (Nasacort Allergy 24Hr) 55 Mcg/Act Spr 1 SPRAY SAM HS Discontinued Medications: Ibuprofen (Advil) 200 Mg Tab 300 MG PO HS, TAB [red ankita oil] () 1 DOSE PO DAILY Admission Information HPI (per Admitting provider): Patient is a 67 yo female who presents to the hospital for complaints of intensifying abdominal pain that first began about 3 days ago. The patient states she noted RUQ constant pain on Tuesday, with radiation to the left side. She states that she has had normal BMs, and attributed the symptoms to possibly something she ate as she said certain foods have been eliminated from her diet due to intolerance (i.e. dairy, whole wheat, certain grains). The pain seemed to get worse each day, until earlier today it became unbearable and starting radiating straight into her back. She denies any recent medication changes, denies any alcohol use, and denies any symptoms of melena, hematochezia , nausea, or vomiting, but only experienced N/V since been in the ER. No prior history of such symptoms. She has never undergone a screening colonoscopy due to a traumatic experience with a sigmoidoscopy. Physical Exam (per Admitting): General Appearance: WD/WN, no apparent distress Head: normocephalic, atraumatic Eyes: PERRL, EOMI, sclerae normal (conjunctivae clear) ENT: hearing grossly normal Neck: supple, no JVD, no carotid bruits, trachea midline Respiratory/Chest: chest non-tender, lungs clear, normal breath sounds, no respiratory distress, no accessory muscle use Cardiovascular: regular rate, rhythm, no edema, no gallop, no JVD, no murmur Abdomen/GI: normal bowel sounds, soft, no organomegaly, + tenderness, + distended Back: normal inspection Extremities/Musculoskelatal: no calf tenderness, normal capillary refill, no pedal edema, non-tender Neurologic/Psych: no motor/sensory deficits, alert, normal mood/affect, oriented x 3 Skin: normal color, warm/dry, no rash Hospital Course Acute pancreatitis aggressive fluids iv pain meds and antiemetics MRCP no gall stones pancreatic ducts ok tolerating soft diet stopped fluids GI o board and plan for EUS as out patient discharged home Fever UA positive on Rocephin cx no growth. discharged home Total time spent on discharge = 35MINUTES This includes examination of the patient, discharge planning, medication reconciliation, and communication with other providers. Discharge Instructions Discharge Instructions Date of Service May 20, 2017. Admission Reason for Admission: Pancreatitis Discharge Discharge Diagnosis / Problem: ACUTE PANCREATITIS Discharge Goals Goal(s): Decrease discomfort, Improve function Activity Recommendations Activity Limitations: resume your previous activity . Instructions / Follow-Up Instructions / Follow-Up FOLLOWUP WITH FAMILY DOCTOR CARRIE WESTBROOK ON May AT 7:45AM FOLLOWUP WITH GI SCHEDULED EUS AND COLONOSCOPY PER GI. Current Hospital Diet Patient's current hospital diet: Low Fat Diet, Regular Diet Discharge Diet Recommended Diet: Regular Diet, Low Fat Diet Pending Studies Studies pending at discharge: no Laboratory Results Lipid Panel Test 05/17/17 07:10 Range/Units Triglycerides Level 53 0-150 mg/dl Cholesterol Level 152 0-200 mg/dl HDL Cholesterol 43 mg/dl Cholesterol/HDL Ratio 3.5 LDL Cholesterol, Calculated 98 mg/dl Work Instructions Additional Instructions: MEDICALLY CLEAR TO GO TO WORK ON May Medical Emergencies . Who to Call and When: Medical Emergencies: If at any time you feel your situation is an emergency, please call 911 immediately. . Non-Emergent Contact Non-Emergency issues call your: Primary Care Provider
== END 2017-05-20 16:20 | disposition home or self-care (01) | DRG 440 ==
LOC: C.EDB 22:08 → C.4E 05-17 06:32 → CANRESERV 05-17 06:55 → ENRESERV 05-17 06:55
PROVIDERS: ADMIT Internal Medicine; ATTEND Internal Medicine
DX: K85.90 Acute pancreatitis without necrosis or infection, unspecified (principal); R50.9 Fever, unspecified; R82.90 Unspecified abnormal findings in urine; I10 Essential (primary) hypertension; J30.9 Allergic rhinitis, unspecified; Z79.899 Other long term (current) drug therapy; Z85.828 Personal history of other malignant neoplasm of skin; Z87.891 Personal history of nicotine dependence; Z91.048 Other nonmedicinal substance allergy status; Z82.49 Family history of ischemic heart disease and other diseases of the circulatory system; Z83.3 Family history of diabetes mellitus; Z80.0 Family history of malignant neoplasm of digestive organs

== ENCOUNTER → 2017-06-09 | Outpatient (CLI) | payer OTHER ==
[~2017-06-09] MED LIST: COEN30CA8 PO; FEXO1TAB49 PO; MELA1TAB5 PO; MONT1TAB3 PO; PROB1TAB16 PO; TRIA1SPR4 NAE
== END | disposition home or self-care (01) ==
LOC: C.PATHSPEC 18:37
PROVIDERS: ATTEND Plastic Surgery
DX: C44.91 Basal cell carcinoma of skin, unspecified (principal)

== ENCOUNTER 2017-10-27 19:50 | Emergency (ER) | payer OTHER ==
[~2017-10-27] VITALS: Ht 160 cm; Wt 86.0 kg
[~2017-10-27 19:50] MED LIST changes: -COEN30CA8 PO; -FEXO1TAB49 PO; -MELA1TAB5 PO; -MONT1TAB3 PO; -PROB1TAB16 PO
[2017-10-27 19:53] VITALS: TEMP 36.7; Ht 160 cm; Wt 86.0 kg
[2017-10-27] MEDS ORDERED: PHENAZOPYRIDINE HCL 200 MG TAB PO STA (20:05)
[2017-10-27] MEDS ORDERED: CEFDINIR 300 MG CAP PO STA (20:05)
--- NOTE | 2017-10-27 20:10 | EMERGENCY ROOM VISIT NOTE ---
History Report prepared by Saumya: Raul Alegria Under the Supervision of: Dr. Braxton Franklin D.O. First contact with patient: 20:00 Chief Complaint: HEMATURIA Stated Complaint: URGENCY/FREQUENCY/BURNING/BLOOD IN URINE, OUCH History of Present Illness The patient is a 67 year old female who presents to the Emergency Room with complaints of worsening hematuria that began an hour ago while at the [employer] game. Patient states she has "severe" pain with urination and the "urge" to urinate. She states the redness in her urine began as just a "tint" but is now "all red with no urine". Patient adds she has back pain and vaginal pain. She states she took Tylenol 3 hours ago. She denies any recent travels outside of the country. She denies abdominal pain, nausea, fevers, and vomiting. She denies a history of kidney stones or UTIs. Patient states she takes Singulair and Vanna. Source of History: patient Onset: An hour ago Position: abdomen Timing: worsening Modifying Factors (Relieving): other (None) Associated Symptoms: + back pain, No fevers, No nausea, No vomiting, No abdominal pain Note: Positive vaginal pain. Review of Systems See HPI for pertinent positives & negatives. A total of 10 systems reviewed and were otherwise negative. Past Medical & Surgical Medical Problems: (1) Heart disease (2) History of skin cancer (3) HTN (hypertension) Family History Cancer Diabetes mellitus Heart disease Hypertension Social History Smoking Status: Never Smoker Drug Use: none Marital Status: Housing Status: lives with family Occupation Status: employed Current/Historical Medications Scheduled Cefdinir (Omnicef), 300 MG PO Q12H Coenzyme Q10 (Ubidecarenone) (Coq-10), Unknown Dose PO DAILY Fexofenadine Hcl (Vanna Allergy), 1 TAB PO HS Fluticasone Propionate (Nasal) (Flonase Allergy Relief), 1 SPRAY SAM HS Melatonin (Kp Melatonin), 6 MG PO HS Montelukast Sodium (Singulair), 10 MG PO HS Probiotic Product (Probiotic), 1 TAB PO DAILY Scheduled PRN Phenazopyridine HCl (Pyridium), 200 MG PO TID PRN for Burning/Frequency w/ Urination Allergies Coded Allergies: Dust (Verified Allergy, Unknown, runny nose, 05/16/17) Physical Exam Vital Signs Date Time Temp Pulse Resp B/P (MAP) Pulse Ox O2 Delivery O2 Flow Rate FiO2 10/27/17 21:04 64 124/79 98 10/27/17 19:53 36.7 70 20 174/104 97 Room Air Physical Exam GENERAL: Patient is awake, alert, and in no acute distress. Patient is resting comfortably and somewhat anxious appearing EYES: The conjunctivae are clear. The pupils are round and reactive. EARS, NOSE, MOUTH AND THROAT: The nose is without any evidence of any deformity. Mucous membranes are moist. Tongue is midline NECK: The neck is nontender and supple. RESPIRATORY: Normal respiratory effort is noted. There is no evidence of wheezing rhonchi or rales to auscultation. CARDIOVASCULAR: Regular rate and rhythm noted. There no murmurs rubs or gallops normal S1 normal S2 GASTROINTESTINAL: The abdomen is soft. Bowel sounds are present in all quadrants. Abdomen is nontender. BACK: No midline tenderness or or step-off noted range of motion in flexion extension as well as rotation no signs of muscle spasm noted. MUSCULOSKELETAL/EXTREMITIES: There is no evidence of gross deformity. Full range of motion is noted in the hips and shoulders. SKIN: There is no obvious evidence of any rash. There are no petechiae, pallor or cyanosis noted. NEUROLOGIC: Patient is awake alert and oriented x3. Medical Decision & Procedures Laboratory Results Test 10/27/17 20:10 Urine Color RED Urine Appearance TURBID (CLEAR) Urine pH 6.0 (4.5-7.5) Urine Specific [place] >= 1.030 (1.000-1.030) Urine Protein 3+ (NEG) Urine Glucose (UA) NEG (NEG) Urine Ketones NEG (NEG) Urine Occult Blood 3+ (NEG) Urine Nitrite NEG (NEG) Urine Bilirubin NEG (NEG) Urine Urobilinogen NEG (NEG) Urine Leukocyte Esterase NEG (NEG) Urine RBC >30 /hpf (0-4) Urine WBC >30 /hpf (0-5) Urine Epithelial Cells 10-20 /lpf (0-5) Urine Bacteria 1+ (NEG) Laboratory results per my review. Medications Administered Medications (Trade) Dose Ordered Sig/Joselyn Route Start Time Stop Time Status Last Admin Dose Admin Phenazopyridine HCl (Pyridium Tab) 200 mg NOW STAT PO 10/27/17 20:05 10/27/17 20:06 DC 10/27/17 20:13 200 MG Cefdinir (Omnicef Cap) 600 mg ONE STAT PO 10/27/17 20:05 10/27/17 20:06 DC 10/27/17 20:14 600 MG ED Course 2000: The patient was evaluated in room B10. A complete history and physical examination were performed. 2004: Cefdinir 600mg PO and Pyridium Tab 200mg PO 2044: Phenazopyridine HCl 1 homepack PO 2057: Upon reevaluation, the patient is resting comfortably. I discussed the results and treatment plan with her. She verbalized agreement of the treatment plan. She was discharged home. Medical Decision Prior records/ancillary studies reviewed. Triage Nursing notes reviewed. Additional history obtained from the family. Differential diagnosis: Etiologies such as renal colic, appendicitis, diverticulitis, mesenteric ischemia, aortic pathology, infections, inflammatory bowel disease, PUD, biliary pathology, UTI, as well as others were entertained. The patient is a 67-year-old female who presented to the emergency department for an evaluation of dysuria and frequency. Patient also started having hematuria. The patient's physical exam and history appear to be consistent with a cystitis. The patient did not have a surgical abdomen on physical exam. She does not have back pain. This did not appear to be consistent with a kidney stone. The patient was treated with Pyridium and an antibiotic in the emergency department. She was reevaluated multiple times. I discussed patient' s laboratory results with her. She was encouraged to continue all medications as prescribed and drink plenty clear liquids. She was also encouraged to follow -up with her family doctor and return to the emergency department immediately if symptoms change worsen or the need arises. Medication Reconcilliation Current Medication List: was personally reviewed by me Blood Pressure Screening Patient's blood pressure: Normal blood pressure Blood pressure disposition: Did not require urgent referral Impression Primary Impression: Hemorrhagic cystitis Scribe Attestation The scribe's documentation has been prepared under my direction and personally reviewed by me in its entirety. I confirm that the note above accurately reflects all work, treatment, procedures, and medical decision making performed by me. Departure Information Dispostion Home / Self-Care Prescriptions Cefdinir (OMNICEF) 300 Mg Cap 300 MG PO Q12H, #14 CAP Prov: Braxton Franklin, DO 10/27/17 Phenazopyridine HCl (Pyridium) 200 Mg Tab 200 MG PO TID Y for Burning/Frequency w/Urination, #6 TAB Prov: Braxton Franklin, DO 10/27/17 Referrals No Doctor, Assigned (PCP) Forms HOME CARE DOCUMENTATION FORM, IMPORTANT VISIT INFORMATION, WORK / SCHOOL INSTRUCTIONS Patient Instructions ED UTI Cystitis Female, My [facility] Additional Instructions Continue all medications as prescribed. Drink plenty of clear liquids. Continue using Motrin and Tylenol as directed for pain. Follow-up with your family doctor soon as possible. Return the emergency department immediately if symptoms change worsening the need arises.
[2017-10-27] MEDS ORDERED: CEFD300C2 PO (20:43)
[2017-10-27] MEDS ORDERED: PHEN-876 PO (20:43)
[2017-10-27] MEDS ORDERED: PHENAZOPYRIDINE HOME PACK 200 MG VIAL PO ONE (20:45)
[2017-10-27 21:04] VITALS: BP 124/79; PULSE 64; O2SAT 98
[2017-10-27] MEDS ORDERED: FLUT0.15 NAE (21:07)
[2017-10-27] MEDS ORDERED: COEN30CA8 PO (23:05)
[2017-10-27] MEDS ORDERED: MONT1TAB3 PO (23:05)
[2017-10-27] MEDS ORDERED: FEXO1TAB49 PO (23:06)
[2017-10-27] MEDS ORDERED: PROB1TAB16 PO (23:07)
[2017-10-27] MEDS ORDERED: MELA1TAB5 PO (23:10)
== END 2017-10-27 21:05 | disposition home or self-care (01) ==
LOC: C.EDB 19:51
DX: N30.90 Cystitis, unspecified without hematuria (principal); I10 Essential (primary) hypertension; Z85.828 Personal history of other malignant neoplasm of skin; Z80.9 Family history of malignant neoplasm, unspecified; Z83.3 Family history of diabetes mellitus; Z82.49 Family history of ischemic heart disease and other diseases of the circulatory system; Z79.899 Other long term (current) drug therapy; Z91.048 Other nonmedicinal substance allergy status